=== PATIENT | male | born 1945 | race Asian ===

== ENCOUNTER 2016-12-31 14:24 | Inpatient (IN) | payer MEDICARE, OTHER ==
[~2016-12-31 14:24] MED LIST: SUCCINYLCHOLINE CHLORIDE INJ 200 MG/10 ML VIAL ONE
[2016-12-31] MEDS ORDERED: NORMAL SALINE 1000 ML 1,000 ML IV ONE (14:44)
--- NOTE | 2016-12-31 15:32 | ER Document Report ---
ED Skin Rash/Insect Bite/Abscs - General Chief Complaint: Skin Problem Stated Complaint: POSSIBLE CELLULITIS/RIGHT FLANK Time Seen by Provider: 12/31/16 14:41 Notes: Patient has a red painful swollen area on his right lower thoracic back which started as a small spot yesterday and is gotten much larger and painful to touch. Patient is a resident and [facility], rehabilitating from coronary bypass surgery in October at [facility].. He had an outpatient CBC done yesterday with a white count of 26,000. 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 Patient has a history of a stroke leaving his right side somewhat affected. Hypertension. High cholesterol. Poor vision and glaucoma. Coronary artery disease with a triple bypass surgery in October. Gout. TRAVEL OUTSIDE OF THE [place] IN LAST 30 DAYS: No - Related Data Allergies/Adverse Reactions: amiodarone Allergy (Verified 12/31/16 16:32) meloxicam [From Mobic] Allergy (Verified 12/31/16 16:32) sulindac [From Clinoril] Allergy (Verified 12/31/16 16:32) Past Medical History - Social History Smoking Status: Unknown if Ever Smoked Frequency of alcohol use: None Family History: Reviewed & Not Pertinent - Past Medical History Cardiac Medical History: Reports: Hx Coronary Artery Disease, Hx Heart Attack, Hx Hypercholesterolemia, Hx Hypertension Neurological Medical History: Reports: Hx Cerebrovascular Accident Endocrine Medical History: Denies: Hx Diabetes Mellitus Type 1, Hx Diabetes Mellitus Type 2 Musculoskeltal Medical History: Reports Hx Gout Review of Systems - Review of Systems Notes: REVIEW OF SYSTEMS: CONSTITUTIONAL : Denies fever. EENT: Denies eye, ear, nose or mouth or throat pain or other symptoms. CARDIOVASCULAR: Denies chest pain. RESPIRATORY: Denies cough, chest congestion, or shortness of breath. GASTROINTESTINAL: Denies abdominal pain or nausea, vomiting, or diarrhea. GENITOURINARY: Denies difficulty or painful urinating, urinary frequency, blood in urine. MUSCULOSKELETAL: Denies back or neck pain. Denies joint pain or swelling. SKIN: See HPI. NEUROLOGICAL: Denies LOC or altered mental status. Denies headache. Denies sensory loss or motor deficits. ALL OTHER SYSTEMS REVIEWED AND NEGATIVE. Physical Exam - Vital signs Vitals: Temp Pulse Resp BP Pulse Ox 99.6 F 67 18 102/55 L 97 12/31/16 14:44 12/31/16 14:44 12/31/16 14:44 12/31/16 14:44 12/31/16 14:44 Interpretation: No: Hypotensive, Febrile - Notes Notes: PHYSICAL EXAMINATION: GENERAL: Chronically ill appearing, in no acute distress. Afebrile and normal blood pressure here, although he had blood pressure of 94/47 by EMS. HEAD: Atraumatic, normocephalic. EYES: Pupils equal round and reactive to light, extraocular movements intact. ENT: oropharynx clear without exudates. Somewhat dry mucous membranes. NECK: Normal range of motion, supple. LUNGS: Breath sounds clear and equal bilaterally. HEART: Regular rate and rhythm without murmurs. Scar from recent CABG ABDOMEN: Soft, nontender. No guarding or rebound. BACK: Right lower thoracic back down to the right flank is all swollen and erythematous and very tender to the touch. Size is about 6 inches in diameter. It is quite firm and indurated and I do not feel fluctuance, although I do suspect there is a tense abscess here. Centrally located in this area of erythema are a half a dozen small pustules that are draining and were cultured. No tenderness throughout remainder of entire back. EXTREMITIES: Normal range of motion without pain. NEUROLOGICAL: Normal speech. Seems to answer questions slowly, but appropriately. Unable to assess ambulation.. PSYCH: Normal mood, normal affect. SKIN: Warm, dry, no rashes. Course - Vital Signs Vital signs: Temp Pulse Resp BP Pulse Ox 99.6 F 67 18 102/55 L 97 12/31/16 14:44 12/31/16 14:44 12/31/16 14:44 12/31/16 14:44 12/31/16 14:44 - Laboratory Result Diagrams: 12/31/16 15:52 12/31/16 15:52 Laboratory results interpreted by me: 12/31/16 12/31/16 15:52 15:52 WBC 35.1 H* RBC 3.04 L Hgb 8.8 L Hct 27.4 L RDW 17.7 H Seg Neuts % (Manual) 86 H Lymphocytes % (Manual) 5 L Abs Neuts (Manual) 31.2 H Abs Basophils (Manual) 0.7 H Direct Bilirubin 0.6 H Alkaline Phosphatase 172 H Albumin 2.9 L - EKG Interpretation by Me EKG shows normal: Sinus rhythm Rate: Normal Rhythm: NSR Additional EKG results interpreted by me: 12/31/16 17:01 ST changes in the inferior leads could be suggestive of ST elevation and an inferior infarct, age undetermined. Patient has absolutely no symptoms to suggest an acute cardiac event. Denies any chest pains whatsoever. No back pain except today where his abscess is located. I have added a troponin and CK- MB testing. Patient's abscess is an emergency that needs to be treated with urgent incision and drainage. Discharge - Discharge Clinical Impression: Abscess of back Condition: Fair Disposition: ADMITTED INPATIENT Admitting Provider: Surgicalist Unit Admitted: OR
[2016-12-31 16:20] LABS: HEMATOCRIT 27.4 % (37.9-51.0); HEMOGLOBIN 8.8 g/dL (13.5-17.0); MEAN CORPUSCULAR HGB CONC 32.2 g/dL (32.0-36.0); MEAN CORPUSCULAR VOLUME 90 fl (80-97); RED BLOOD COUNT 3.04 10^6/uL (4.35-5.55); RED CELL DISTRIBUTION WIDTH 17.7 % (11.5-14.0)
[2016-12-31 16:42] LABS: ALANINE AMINOTRANSFERASE 49 U/L (21-72); ALBUMIN 2.9 g/dL (3.5-5.0); ALKALINE PHOSPHATASE 172 U/L (38-126); ANION GAP 10 (5-19); ASPARTATE AMINO TRANSFERASE 47 U/L (17-59); BILIRUBIN,DIRECT 0.6 mg/dL (0.0-0.4); BILIRUBIN,TOTAL 0.8 mg/dL (0.2-1.3); BLOOD UREA NITROGEN 10 mg/dL (7-20); CALCIUM 8.9 mg/dL (8.4-10.2); CARBON DIOXIDE 25 mmol/L (22-30); CHLORIDE 104 mmol/L (98-107); CREATININE RESULT 0.74 mg/dL (0.52-1.25); GLUCOSE 104 mg/dL (75-110); POTASSIUM 3.6 mmol/L (3.6-5.0); TOTAL PROTEIN 6.5 g/dL (6.3-8.2)
[2016-12-31 16:45] LABS: BAND NEUTROPHILS % (MANUAL) 3 % (3-5); BASOPHILS % (MANUAL) 2 % (0-2); EOSINOPHILS % (MANUAL) 1 % (0-6); LYMPHOCYTES % (MANUAL) 5 % (13-45); TOTAL CELLS COUNTED 100
[2016-12-31 16:47] LABS: ANISOCYTOSIS 1+; HYPOCHROMASIA SLIGHT; PLATELET CLUMPS PRESENT
[2016-12-31 16:50] LABS: WHITE BLOOD COUNT 35.1 10^3/uL (4.0-10.5)
[2016-12-31] MEDS ORDERED: BUPIVACAINE HCL 0.5 % INJ/PF 30 ML SDV ONE (17:07)
[2016-12-31] MEDS ORDERED: CLINDAMYCIN 600 MG/D5W RTU 600 MG/50 ML RTUPB IV ONE (17:13)
[2016-12-31] MEDS ORDERED: CLINDAMYCIN 600 MG/D5W RTU 600 MG/50 ML RTUPB IV SCH (17:15)
[2016-12-31] MEDS ORDERED: PROPOFOL INJ 200 MG/20 ML VIAL IV ONE (17:26)
[2016-12-31] MEDS ORDERED: FENTANYL CITRATE INJ/PF 100 MCG/2 ML AMPUL ONE ×2 (17:26→18:20)
[2016-12-31] MEDS ORDERED: MIDAZOLAM 2 MG/2 ML INJ ONE (17:26)
[2016-12-31] MEDS ORDERED: LIDOCAINE 2% INJ-PF (20 MG/ML) 10 ML AMPUL ONE (17:26)
[2016-12-31] MEDS ORDERED: ACETAMINOPHEN 100 ML IV ONE (17:27)
[2016-12-31] MEDS ORDERED: EPHEDRINE SULFATE INJ 50 MG/1 ML AMPULE ONE (17:27)
[2016-12-31 17:41] LABS: CREATINE KINASE MB 0.73 ng/mL (<4.55)
[2016-12-31 17:53] LABS: APPEARANCE,URINE SLIGHTLY-CLOUDY; BILIRUBIN,URINE NEGATIVE (NEGATIVE); GLUCOSE, URINE NEGATIVE (NEGATIVE); KETONES,URINE NEGATIVE (NEGATIVE); LEUKOCYTE ESTERASE,URINE NEGATIVE (NEGATIVE); NITRITE,URINE NEGATIVE (NEGATIVE); PROTEIN,URINE NEGATIVE (NEGATIVE); URINE SPECIFIC GRAVITY 1.012
[2016-12-31 17:56] LABS: TROPONIN I 0.051 ng/mL
[2016-12-31] MEDS ORDERED: ONDANSETRON HCL INJ/PF 4 MG/2 ML SDV IV PRN (18:34)
[2016-12-31] MEDS ORDERED: FENTANYL CITRATE INJ/PF 100 MCG/2 ML AMPUL IV PRN ×3 (18:34)
[2016-12-31] MEDS ORDERED: DIPHENHYDRAMINE HCL 50 MG/ML VIAL IV PRN (18:34)
[2016-12-31] MEDS ORDERED: OXYCODONE-ACETAMINOPHEN 5-325 MG TABLET PO PRN (18:34)
[2016-12-31] MEDS ORDERED: MEPERIDINE HCL/PF INJ 25 MG/1 ML DISP.SYRIN IV PRN (18:34)
[2016-12-31] MEDS ORDERED: PROMETHAZINE HCL INJ 25 MG/1 ML VIAL IV PRN ×2 (18:34)
[2016-12-31 19:21] LABS: HEMATOCRIT 24.3 % (37.9-51.0); HGB HCT DIFFERENCE -0.6; MEAN CORPUSCULAR HEMOGLOBIN 29.1 pg (27.0-33.4); MEAN CORPUSCULAR HGB CONC 32.3 g/dL (32.0-36.0); MEAN CORPUSCULAR VOLUME 90 fl (80-97)
[2016-12-31] MEDS ORDERED: VANCOMYCIN HCL INJ 1000 MG VIAL IV PRN (19:28)
[2016-12-31 19:45] LABS: BAND NEUTROPHILS % (MANUAL) 6 % (3-5); BASOPHILS % (MANUAL) 0 % (0-2); EOSINOPHILS % (MANUAL) 1 % (0-6); LYMPHOCYTES % (MANUAL) 1 % (13-45); TOTAL CELLS COUNTED 100
[2016-12-31 19:46] LABS: TOXIC VACUOLATION PRESENT
[2016-12-31 19:49] LABS: ANISOCYTOSIS SLIGHT; OVALOCYTES SLIGHT; POIKILOCYTOSIS SLIGHT
[2016-12-31 19:50] LABS: PLATELET CLUMPS PRESENT; TARGET CELLS SLIGHT
[2016-12-31 19:51] LABS: BURR CELLS SLIGHT
[2016-12-31 19:52] LABS: HEMOGLOBIN 7.9 g/dL (13.5-17.0)
--- NOTE | 2016-12-31 19:58 | HISTORY AND PHYSICAL E ---
History and Physical NAME: GISSELLE DUFF : 1945 AGE: 71Y ADMITTED: 12/31/2016 ROOM: ED08 CHIEF COMPLAINT: Pains in the right lower back. HISTORY OF PRESENT ILLNESS: This is a 71-year-old male who had a previous coronary artery bypass a month ago and was at the residential recuperating when he complained of pains along the right lower back for the past 3 days. It was noted to be getting bigger and red and painful and so was brought to the emergency room. PAST MEDICAL HISTORY: 1. History of hypertension. 2. 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 The only residual is a little slow in speech and occasionally gets unstable on his feet. SOCIAL HISTORY: Used to smoke until 1979. Drinks wine rarely. Denies recreational drug use. ALLERGIES: None known. FAMILY HISTORY: Mother had diabetes and father had a stroke. A son also has diabetes. REVIEW OF SYSTEMS: A little slow in speech. Denies any chest pain, any shortness of breath. No visual or hearing problems. Denies headaches. No chest pains or shortness of breath. No abdominal pains. No diarrhea. No constipation. Complaining of pains in the right lower back over the past 3 days. Denies any fever or chills. PHYSICAL EXAMINATION: SKIN/MUSCULOSKELETAL: Extremities have some superficial ulcer on the left heel presumed to be due to gouty arthritis. He also has a grade-1 to 2 decubitus ulcer on the sacral area that is apparently healing, accordingly to his . He has a large reddish-discolored very tender lump on the right lower back that is very tender. IMPRESSION: 1. Abscess of the right lower back. 2. Status post coronary artery bypass. PLANS: The patient is for incision and drainage of abscess of the right lower back. Start him on IV antibiotics and start hydrating since he has not eaten since yesterday. DICTATING PHYSICIAN: YOHANNES LENNON M.D. [id number] PHY#: [id number] ID: [id number] JOB#: [id number] ACCT: [id number] cc:NO Tiana MARTE
--- NOTE | 2016-12-31 21:13 | OPERATIVE REPORT E ---
Operative Report NAME: GISSELLE DUFF : 1945 AGE: 71Y DATE OF SURGERY: 12/31/2016 ROOM: 316 PREOPERATIVE DIAGNOSIS: Abscess of the right lower back. POSTOPERATIVE DIAGNOSIS: Abscess of the right lower back with involvement of the fascia down to the posterior muscle. OPERATION: Incision and drainage and debridement of 12 cm x 3 cm deep x 3 cm wide abscess. SURGEON: YOHANNES LENNON M.D. ANESTHESIA: General. INDICATION: This is a 71-year-old male post coronary artery bypass a month ago and has been in the [facility] recovering, when he complained of pains along the right lower back for the past 2-3 days. His white count is elevated at 35,000 and he apparently has a history of leukemoid reaction. Denies any fever but has some chills or feels cold. He has a large erythema along the right lower back that is very tender. DESCRIPTION OF PROCEDURE: After adequate general anesthesia, the patient was placed in the left lateral decubitus position with the right side up. An appropriate timeout was performed. Next, a transverse incision was made across the erythematous area and a lot of pus extruded out. Cultures were obtained. The incision was extended laterally and medially to a distance of 12 cm. There was some tunneling that was broken down with finger dissection, and the fascia was involved, going down to the muscle underneath the fascia. The fascia was partially debrided and the wound was then pulse lavaged with about 6 L of saline. Further debridement of necrotic tissue was done of the subcu of the fascia. It appears that the abscess was going superiorly and inferiorly through the subcutaneous area, since pus would come out just by pressing on the subcu. This was also opened up and debrided. Hemostasis was controlled with cautery. The fascia was debrided up to bleeding area. Hemostasis further controlled with cautery. Next the cavity was then packed with 1/2-inch Iodoform gauze. A sterile 4 x 4 and ABD was then placed over the operative site. Needle, instruments and sponge counts were all correct. Estimated blood loss about 30 mL. The patient was then brought to PACU in guarded condition. DICTATING PHYSICIAN: YOHANNES LENNON M.D. [id number] PHY#: [id number] ID: [id number] JOB#: [id number] ACCT: [id number] cc:YOHANNES LENNON M.D. >
[2016-12-31] MEDS ORDERED: NORMAL SALINE 250 ML IV PRN (21:26)
[2016-12-31] MEDS: NORMAL SALINE 1000 ML 1,000 ML IV PRN (22:04)
[2016-12-31] MEDS ORDERED: VANCOMYCIN HCL INJ 1000 MG VIAL ONE (22:38)
[2016-12-31] MEDS: VANCOMYCIN HCL 1,000 MG in DEXTROSE 5%-WATER 250 ML IV SCH (23:40)
[2017-01-01] MEDS ORDERED: INFLUENZA ADLT QUAD (36MOS+) 2017-18 VAC 0.5 ML SYR IM PRN (02:58)
--- NOTE | 2017-01-01 06:24 | EKG REPORT ---
SEVERITY:- ABNORMAL ECG - SINUS RHYTHM PROBABLE INFERIOR INFARCT, AGE INDETERMINATE LATERAL LEADS ARE ALSO INVOLVED : Confirmed by: Candace Flores MD 01-Jan-2017 06:23:09
[2017-01-01 08:39] LABS: HEMATOCRIT 31.8 % (37.9-51.0); HGB HCT DIFFERENCE 0.3; MEAN CORPUSCULAR HEMOGLOBIN 28.7 pg (27.0-33.4); MEAN CORPUSCULAR HGB CONC 33.5 g/dL (32.0-36.0); RED BLOOD COUNT 3.71 10^6/uL (4.35-5.55); RED CELL DISTRIBUTION WIDTH 19.5 % (11.5-14.0)
--- NOTE | 2017-01-01 09:33 | PDOC PROGRESS REPORT ---
Subjective Progress Note for:: 01/01/17 Subjective:: Patient is very weak, but states he feels better. Physical Exam Vital Signs: Temp Pulse Resp BP Pulse Ox 98.7 F 70 18 133/77 H 99 01/01/17 07:32 01/01/17 07:32 01/01/17 07:32 01/01/17 07:32 01/01/17 07:32 Intake & Output 12/31/16 01/01/17 01/02/17 06:59 06:59 06:59 Intake Total 89589 Output Total 6260 Balance 3994 Weight 68.5 kg General appearance: PRESENT: no acute distress GI/Abdominal exam: PRESENT: other - Patient rolled in the left lateral position. External dressing removed; surrounding operative wound erythema settling down. Strip packing left in position. Results Laboratory Results: 01/01/17 08:10 12/31/16 12/31/16 12/31/16 17:15 17:22 19:10 WBC 30.0 H* RBC 2.70 L Hgb 7.9 L Hct 24.3 L MCV 90 MCH 29.1 MCHC 32.3 RDW 18.0 H Plt Count 276 Seg Neutrophils % Not Reportable Lymphocytes % Not Reportable Monocytes % Not Reportable Eosinophils % Not Reportable Basophils % Not Reportable Absolute Neutrophils Not Reportable Absolute Lymphocytes Not Reportable Absolute Monocytes Not Reportable Absolute Eosinophils Not Reportable Absolute Basophils Not Reportable Sodium Potassium Chloride Carbon Dioxide Anion Gap BUN Creatinine Est GFR ( Amer) Est GFR (Non-Af Amer) Glucose Lactic Acid Calcium Total Bilirubin AST ALT Alkaline Phosphatase Total Protein Albumin Urine Color YELLOW Urine Appearance SLIGHTLY-CLOUDY Urine pH 5.0 Ur Specific [place] 1.012 Urine Protein NEGATIVE Urine Glucose (UA) NEGATIVE Urine Ketones NEGATIVE Urine Blood NEGATIVE Urine Nitrite NEGATIVE Ur Leukocyte Esterase NEGATIVE Urine WBC (Auto) 2 Urine RBC (Auto) 0 Blood Type A POSITIVE Antibody Screen NEGATIVE 12/31/16 01/01/17 20:25 08:10 WBC RBC Hgb Hct MCV MCH MCHC RDW Plt Count Seg Neutrophils % Lymphocytes % Monocytes % Eosinophils % Basophils % Absolute Neutrophils Absolute Lymphocytes Absolute Monocytes Absolute Eosinophils Absolute Basophils Sodium Cancelled Potassium Cancelled Chloride Cancelled Carbon Dioxide Cancelled Anion Gap Cancelled BUN Cancelled Creatinine Cancelled Est GFR ( Amer) Cancelled Est GFR (Non-Af Amer) Cancelled Glucose Cancelled Lactic Acid 1.5 Calcium Cancelled Total Bilirubin Cancelled AST Cancelled ALT Cancelled Alkaline Phosphatase Cancelled Total Protein Cancelled Albumin Cancelled Urine Color Urine Appearance Urine pH Ur Specific [place] Urine Protein Urine Glucose (UA) Urine Ketones Urine Blood Urine Nitrite Ur Leukocyte Esterase Urine WBC (Auto) Urine RBC (Auto) Blood Type Antibody Screen Assessment & Plan - Diagnosis (1) Abscess of back Is this a current diagnosis for this admission?: Yes Plan: Deep, extensive, neglected, now status post operative debridement by Dr. Pollock , postoperative day 1. Plan: 1. We will get patient up with physical therapy. He is very deconditioned. He will likely require transfer to longterm facility 2. Check cultures; continue IV vancomycin 3. We will remove packing and start patient either on dressing changes or wound VAC therapy tomorrow. 4. Start Colace
[2017-01-01 09:35] LABS: BAND NEUTROPHILS % (MANUAL) 2 % (3-5); BASOPHILS % (MANUAL) 0 % (0-2); EOSINOPHILS % (MANUAL) 2 % (0-6); LYMPHOCYTES % (MANUAL) 4 % (13-45); TOTAL CELLS COUNTED 100
[2017-01-01 09:39] LABS: POLYCHROMASIA SLIGHT; TOXIC GRANULATION 2+; TOXIC VACUOLATION PRESENT
[2017-01-01 09:40] LABS: ANISOCYTOSIS 2+; OVALOCYTES 1+; POIKILOCYTOSIS 1+
[2017-01-01 09:41] LABS: HEMOGLOBIN 10.7 g/dL (13.5-17.0); MEAN CORPUSCULAR VOLUME 86 fl (80-97)
[2017-01-01 09:45] LABS: WHITE BLOOD COUNT 32.7 10^3/uL (4.0-10.5)
[2017-01-01] MEDS: ENOXAPARIN SODIUM INJ 40 MG/0.4 ML DISP.SYRIN SUBCUT SCH (10:39)
[2017-01-01] MEDS: VANCOMYCIN HCL 1,000 MG in DEXTROSE 5%-WATER 250 ML IV SCH ×2 (10:39→22:31)
[2017-01-01] MEDS: NORMAL SALINE 1000 ML 1,000 ML IV PRN ×2 (10:40→22:30)
[2017-01-01] MEDS: DOCUSATE SODIUM 100 MG CAPSULE PO SCH ×2 (10:40→18:51)
[2017-01-01] MEDS ORDERED: ERTAPENEM SODIUM INJ 1 GM VIAL IV SCH (10:45)
--- NOTE | 2017-01-01 10:45 | PDOC CONSULTATION ---
Consultation Consult Date: 01/01/17 Attending physician:: YOHANNES LENNON Consult reason:: Medical management History of Present Illness Admission Date/PCP: 12/31/16 17:08 Patient complains of: back pain. History of Present Illness: GISSELLE DUFF is a 71 year old male, w/ CAD s/p recent coronary artery bypass grafting on rehabilitation started to develop induration and pain on the back. Patient has a red painful swollen area on his right lower thoracic back which started as a small spot yesterday and is gotten much larger and painful to touch. Patient is a resident and [facility], rehabilitating from coronary bypass surgery in October at [facility].. He had an outpatient CBC done yesterday with a white count of 26,000. On evaluation in the emergency room patient was found to have an abscess and therefore surgery was consulted and an incision and drainage was done. Patient was admitted and referred to the hospitalist service for medical management. Past Medical History Cardiac Medical History: Reports: Coronary Artery Disease, Myocardial Infarction , Hyperlipidema, Hypertension Neurological Medical History: Reports: Other - Cerebral aneurysm and stroke Endocrine Medical History: Denies: Diabetes Mellitus Type 1, Diabetes Mellitus Type 2 Musculoskeltal Medical History: Reports: Gout Past Surgical History Past Surgical History: Reports: Coronary Artery Bypass Graft Social History Information Source: Patient Smoking Status: Former Smoker Frequency of Alcohol Use: Rare Hx Recreational Drug Use: No Drugs: None - Advance Directive Resuscitation Status: Full Code Family History Family History: CVA, DM Parental Family History Reviewed: Yes Children Family History Reviewed: Yes Sibling(s) Family History Reviewed.: Yes Medication/Allergy Home Medications: Allopurinol [Zyloprim 300 mg Tablet] 300 mg PO DAILY 01/01/17 Aspirin [Aspirin EC] 81 mg PO DAILY 01/01/17 Atorvastatin Calcium [Lipitor 80 mg Tablet] 80 mg PO QHS 01/01/17 Brimonidine Tartrate [Alphagan P] 1 drop OU Q8 01/01/17 Felodipine [Plendil] 5 mg PO DAILY 01/01/17 Finasteride [Proscar 5 mg Tablet] 5 mg PO DAILY 01/01/17 Lisinopril [Prinivil 40 mg Tablet] 40 mg PO DAILY 01/01/17 Metoprolol Succinate [Toprol XL 100 mg Tablet] 100 mg PO DAILY 01/01/17 Multivit,Calc,Mins/Iron/Folic [Thera M Plus Tablet] 1 each PO DAILY 01/01/17 Tamsulosin HCl [Flomax 0.4 mg Cap.sr] 0.4 mg PO QHS 01/01/17 Allergies/Adverse Reactions: amiodarone Allergy (Verified 12/31/16 16:32) meloxicam [From Mobic] Allergy (Verified 12/31/16 16:32) sulindac [From Clinoril] Allergy (Verified 12/31/16 16:32) Review of Systems Constitutional: PRESENT: fatigue, fever(s), weakness - Generalized. ABSENT: chills, headache(s), weight gain, weight loss Eyes: PRESENT: visual disturbances - Wears corrective lenses Ears: ABSENT: hearing changes Nose, Mouth, and Throat: ABSENT: mouth pain, sore throat Cardiovascular: PRESENT: chest pain - Occasionally from the wound, dyspnea on exertion - Occasionally. ABSENT: edema, orthropnea, palpitations Respiratory: ABSENT: cough, dyspnea - At rest, hemoptysis, sputum Gastrointestinal: PRESENT: constipation - Occasional. ABSENT: abdominal pain, diarrhea, hematemesis, hematochezia, melena, nausea, vomiting Genitourinary: ABSENT: dysuria, hematuria Musculoskeletal: ABSENT: joint swelling Integumentary: ABSENT: pruritus, rash, wounds Neurological: ABSENT: abnormal gait, abnormal speech, confusion, dizziness, focal weakness, syncope Psychiatric: ABSENT: anxiety, depression, homidical ideation, suicidal ideation Endocrine: ABSENT: cold intolerance, heat intolerance, polydipsia, polyuria Hematologic/Lymphatic: ABSENT: easy bleeding, easy bruising Physical Exam Vital Signs: Temp Pulse Resp BP Pulse Ox 98.7 F 70 18 133/77 H 96 01/01/17 07:32 01/01/17 07:32 01/01/17 07:32 01/01/17 07:32 01/01/17 10:11 Intake & Output 12/31/16 01/01/17 01/02/17 06:59 06:59 06:59 Intake Total 14177 Output Total 6260 Balance 3994 Weight 68.5 kg General appearance: PRESENT: no acute distress, cooperative Head exam: PRESENT: atraumatic, normocephalic Eye exam: PRESENT: conjunctiva pale, EOMI, PERRLA. ABSENT: scleral icterus Ear exam: PRESENT: normal external ear exam. ABSENT: drainage Mouth exam: PRESENT: moist, neck supple, tongue midline Neck exam: ABSENT: carotid bruit, JVD, lymphadenopathy, thyromegaly Respiratory exam: PRESENT: clear to auscultation cuate, unlabored. ABSENT: rales , rhonchi, wheezes Cardiovascular exam: PRESENT: RRR, systolic murmur - Soft murmur on the left sternal border 2/6. ABSENT: diastolic murmur, rubs Pulses: PRESENT: normal dorsalis pedis pul Vascular exam: PRESENT: normal capillary refill GI/Abdominal exam: PRESENT: normal bowel sounds, soft. ABSENT: distended, guarding, mass, organolmegaly, rebound, tenderness Rectal exam: PRESENT: deferred Extremities exam: PRESENT: full ROM, other - Trace pretibial edema. ABSENT: calf tenderness, clubbing, pedal edema Neurological exam: PRESENT: alert, awake, oriented to person, oriented to place , oriented to time, oriented to situation Psychiatric exam: PRESENT: appropriate affect, normal mood. ABSENT: homicidal ideation, suicidal ideation Skin exam: PRESENT: dry, intact, warm, other - Wound right flank area clean without any foul-smelling drainage with surrounding cellulitis.. ABSENT: cyanosis Results Laboratory Results: 01/01/17 08:10 01/01/17 08:10 12/31/16 12/31/16 12/31/16 17:15 17:22 19:10 WBC 30.0 H* RBC 2.70 L Hgb 7.9 L Hct 24.3 L MCV 90 MCH 29.1 MCHC 32.3 RDW 18.0 H Plt Count 276 Seg Neutrophils % Not Reportable Lymphocytes % Not Reportable Monocytes % Not Reportable Eosinophils % Not Reportable Basophils % Not Reportable Absolute Neutrophils Not Reportable Absolute Lymphocytes Not Reportable Absolute Monocytes Not Reportable Absolute Eosinophils Not Reportable Absolute Basophils Not Reportable Sodium Potassium Chloride Carbon Dioxide Anion Gap BUN Creatinine Est GFR ( Amer) Est GFR (Non-Af Amer) Glucose Lactic Acid Calcium Total Bilirubin AST ALT Alkaline Phosphatase Total Protein Albumin Urine Color YELLOW Urine Appearance SLIGHTLY-CLOUDY Urine pH 5.0 Ur Specific [place] 1.012 Urine Protein NEGATIVE Urine Glucose (UA) NEGATIVE Urine Ketones NEGATIVE Urine Blood NEGATIVE Urine Nitrite NEGATIVE Ur Leukocyte Esterase NEGATIVE Urine WBC (Auto) 2 Urine RBC (Auto) 0 Blood Type A POSITIVE Antibody Screen NEGATIVE 12/31/16 01/01/17 01/01/17 20:25 08:10 08:10 WBC 32.7 H* RBC 3.71 L Hgb 10.7 L D Hct 31.8 L MCV 86 D MCH 28.7 MCHC 33.5 RDW 19.5 H Plt Count 305 Seg Neutrophils % Not Reportable Lymphocytes % Not Reportable Monocytes % Not Reportable Eosinophils % Not Reportable Basophils % Not Reportable Absolute Neutrophils Not Reportable Absolute Lymphocytes Not Reportable Absolute Monocytes Not Reportable Absolute Eosinophils Not Reportable Absolute Basophils Not Reportable Sodium Cancelled Potassium Cancelled Chloride Cancelled Carbon Dioxide Cancelled Anion Gap Cancelled BUN Cancelled Creatinine Cancelled Est GFR ( Amer) Cancelled Est GFR (Non-Af Amer) Cancelled Glucose Cancelled Lactic Acid 1.5 Calcium Cancelled Total Bilirubin Cancelled AST Cancelled ALT Cancelled Alkaline Phosphatase Cancelled Total Protein Cancelled Albumin Cancelled Urine Color Urine Appearance Urine pH Ur Specific [place] Urine Protein Urine Glucose (UA) Urine Ketones Urine Blood Urine Nitrite Ur Leukocyte Esterase Urine WBC (Auto) Urine RBC (Auto) Blood Type Antibody Screen Assessment & Plan - Diagnosis (1) Sepsis Qualifiers: Sepsis type: sepsis due to unspecified organism Qualified Code(s): A41.9 - Sepsis, unspecified organism Is this a current diagnosis for this admission?: Yes (2) Abscess of back Is this a current diagnosis for this admission?: Yes (3) Anemia of chronic disease Is this a current diagnosis for this admission?: Yes (4) Essential hypertension Is this a current diagnosis for this admission?: Yes (5) Coronary artery disease Qualifiers: Coronary Disease-Associated Artery/Lesion type: [place] artery [place] vs. transplanted heart: [place] heart Associated angina: without angina Qualified Code(s): I25.10 - Atherosclerotic heart disease of [place] coronary artery without angina pectoris Is this a current diagnosis for this admission?: Yes (6) History of stroke Is this a current diagnosis for this admission?: Yes - Time Time Spent: 50 to 70 Minutes - Plan Summary Plan Summary: Agree with intravenous vancomycin. Add intravenous Invanz. Monitor WBC. Resume home medications. Thank you so much for this consultation we will follow the patient with you.
[2017-01-01] MEDS ORDERED: METOPROLOL SUCCINATE 50 MG TAB.SR.24H PO ONE (12:00)
[2017-01-01] MEDS ORDERED: ASPIRIN 81 MG TABLET, ENT COATED PO ONE (12:00)
[2017-01-01] MEDS ORDERED: ALLOPURINOL 300 MG TABLET PO ONE (12:00)
[2017-01-01] MEDS ORDERED: FINASTERIDE 5 MG TABLET PO ONE (12:00)
[2017-01-01] MEDS ORDERED: ERTAPENEM SODIUM 1 GM in NORMAL SALINE 50 ML IV SCH (12:00)
[2017-01-01] MEDS: OXYCODONE-ACETAMINOPHEN 5-325 MG TABLET PO PRN ×3 (12:36→23:46)
[2017-01-01] MEDS ORDERED: (PENDING PHARMACY ID) (Brimonidine Tartrate [Alphagan P] 1 DROP) OU SCH (14:00)
[2017-01-01 14:13] LABS: PATH REVIEW PATHOLOGIST REVIEWED
[2017-01-01] MEDS: ERTAPENEM SODIUM 1 GM in NORMAL SALINE 50 ML IV SCH (14:31)
[2017-01-01 14:47] LABS: ALANINE AMINOTRANSFERASE 44 U/L (21-72); ALBUMIN 2.3 g/dL (3.5-5.0); ALKALINE PHOSPHATASE 142 U/L (38-126); ANION GAP 13 (5-19); ASPARTATE AMINO TRANSFERASE 34 U/L (17-59); BILIRUBIN,DIRECT 0.5 mg/dL (0.0-0.4); BILIRUBIN,TOTAL 0.8 mg/dL (0.2-1.3); BLOOD UREA NITROGEN 10 mg/dL (7-20); CALCIUM 8.1 mg/dL (8.4-10.2); CARBON DIOXIDE 21 mmol/L (22-30); CHLORIDE 105 mmol/L (98-107); CREATININE RESULT 0.68 mg/dL (0.52-1.25); GLUCOSE 119 mg/dL (75-110); POTASSIUM 3.3 mmol/L (3.6-5.0); SODIUM 139.4 mmol/L (137-145); TOTAL PROTEIN 5.5 g/dL (6.3-8.2)
[2017-01-01] MEDS: TAMSULOSIN HCL 0.4 MG CAP.SR.24H PO SCH (18:51)
[2017-01-01] MEDS: ATORVASTATIN CALCIUM 80 MG TABLET PO SCH (22:30)
[2017-01-02] MEDS: MORPHINE SULFATE 10 MG/ML INJ IV PRN (02:25)
[2017-01-02] MEDS: OXYCODONE-ACETAMINOPHEN 5-325 MG TABLET PO PRN ×3 (04:58→20:24)
[2017-01-02 05:07] LABS: HEMATOCRIT 32.5 % (37.9-51.0); HEMOGLOBIN 10.8 g/dL (13.5-17.0); HGB HCT DIFFERENCE -0.1; MEAN CORPUSCULAR HEMOGLOBIN 28.4 pg (27.0-33.4); MEAN CORPUSCULAR HGB CONC 33.2 g/dL (32.0-36.0); MEAN CORPUSCULAR VOLUME 85 fl (80-97); RED CELL DISTRIBUTION WIDTH 20.2 % (11.5-14.0); WHITE BLOOD COUNT 24.3 10^3/uL (4.0-10.5)
[2017-01-02 05:22] LABS: ANION GAP 10 (5-19); BLOOD UREA NITROGEN 9 mg/dL (7-20); CALCIUM 8.4 mg/dL (8.4-10.2); CARBON DIOXIDE 22 mmol/L (22-30); CHLORIDE 107 mmol/L (98-107); CREATININE RESULT 0.71 mg/dL (0.52-1.25); GLUCOSE 106 mg/dL (75-110); POTASSIUM 3.6 mmol/L (3.6-5.0); SODIUM 139.1 mmol/L (137-145)
[2017-01-02] MEDS: ENOXAPARIN SODIUM INJ 40 MG/0.4 ML DISP.SYRIN SUBCUT SCH (09:33)
[2017-01-02] MEDS: ALLOPURINOL 300 MG TABLET PO SCH (09:34)
[2017-01-02] MEDS: FINASTERIDE 5 MG TABLET PO SCH (09:35)
[2017-01-02] MEDS: DOCUSATE SODIUM 100 MG CAPSULE PO SCH ×2 (09:35→18:49)
[2017-01-02] MEDS: METOPROLOL SUCCINATE 50 MG TAB.SR.24H PO SCH (09:35)
[2017-01-02] MEDS: VANCOMYCIN HCL 1,000 MG in DEXTROSE 5%-WATER 250 ML IV SCH ×2 (09:52→22:58)
[2017-01-02] MEDS: ASPIRIN 81 MG TABLET, ENT COATED PO SCH (09:54)
[2017-01-02] MEDS ORDERED: HYDRALAZINE HCL INJ/PF 20 MG/1 ML SDV IV PRN (13:48)
--- NOTE | 2017-01-02 13:53 | PDOC PROGRESS REPORT ---
Physical Exam Vital Signs: Temp Pulse Resp BP Pulse Ox 100.1 F 88 20 174/112 H 94 01/02/17 12:11 01/02/17 12:11 01/02/17 12:11 01/02/17 12:11 01/02/17 12:11 Intake & Output 01/01/17 01/02/17 01/03/17 06:59 06:59 06:59 Intake Total 10661 3599 Output Total 6260 425 Balance 3994 3174 Weight 68.5 kg Results Laboratory Results: 01/02/17 04:47 01/02/17 04:47 01/01/17 01/02/17 01/02/17 14:05 04:47 04:47 WBC 24.3 H RBC 3.80 L Hgb 10.8 L Hct 32.5 L MCV 85 MCH 28.4 MCHC 33.2 RDW 20.2 H Plt Count 308 Sodium 139.4 139.1 Potassium 3.3 L 3.6 Chloride 105 107 Carbon Dioxide 21 L 22 Anion Gap 13 10 BUN 10 9 Creatinine 0.68 0.71 Est GFR ( Amer) > 60 > 60 Est GFR (Non-Af Amer) > 60 > 60 Glucose 119 H 106 Calcium 8.1 L 8.4 Total Bilirubin 0.8 AST 34 ALT 44 Alkaline Phosphatase 142 H Total Protein 5.5 L Albumin 2.3 L Assessment & Plan - Diagnosis (1) Sepsis Qualifiers: Sepsis type: sepsis due to unspecified organism Qualified Code(s): A41.9 - Sepsis, unspecified organism Is this a current diagnosis for this admission?: Yes Plan: Secondary to an abscess on his back. (2) Abscess of back Is this a current diagnosis for this admission?: Yes Plan: Currently on vancomycin and ertapenem. (3) Anemia of chronic disease Is this a current diagnosis for this admission?: Yes (4) Coronary artery disease Qualifiers: Coronary Disease-Associated Artery/Lesion type: [place] artery [place] vs. transplanted heart: [place] heart Associated angina: without angina Qualified Code(s): I25.10 - Atherosclerotic heart disease of [place] coronary artery without angina pectoris Is this a current diagnosis for this admission?: Yes Plan: Denies any chest pain. (5) Essential hypertension Is this a current diagnosis for this admission?: Yes Plan: Patient's blood pressure has been elevated. He normally takes Plendil but we do not have that on formulary will give Norvasc instead. Also will give as needed hydralazine. (6) History of stroke Is this a current diagnosis for this admission?: Yes - Time Time Spent with patient: 25-34 minutes - Inpatient Certification Medical Necessity: Need for IV Antibiotics
[2017-01-02] MEDS: ERTAPENEM SODIUM 1 GM in NORMAL SALINE 50 ML IV SCH (14:18)
[2017-01-02] MEDS ORDERED: AMLODIPINE BESYLATE 5 MG TABLET PO ONE (14:45)
[2017-01-02] MEDS ORDERED: LIDOCAINE 0.5% INJ-PF (5 MG/ML) 50 ML SDV ONE (15:34)
[2017-01-02] MEDS ORDERED: ONDANSETRON HCL INJ/PF 4 MG/2 ML SDV ONE (15:36)
[2017-01-02] MEDS ORDERED: FENTANYL CITRATE INJ/PF 100 MCG/2 ML AMPUL ONE (15:36)
[2017-01-02] MEDS ORDERED: MIDAZOLAM 2 MG/2 ML INJ ONE (15:36)
[2017-01-02] MEDS ORDERED: PROPOFOL INJ 200 MG/20 ML VIAL IV ONE (15:37)
[2017-01-02] MEDS ORDERED: MORPHINE SULFATE 10 MG/ML INJ IV PRN (16:43)
[2017-01-02] MEDS ORDERED: PROMETHAZINE HCL INJ 25 MG/1 ML VIAL IV PRN (16:43)
[2017-01-02] MEDS ORDERED: MEPERIDINE HCL/PF INJ 25 MG/1 ML DISP.SYRIN IV PRN (16:43)
[2017-01-02] MEDS ORDERED: DIPHENHYDRAMINE HCL 50 MG/ML VIAL IV PRN (16:43)
[2017-01-02] MEDS ORDERED: FENTANYL CITRATE INJ/PF 100 MCG/2 ML AMPUL IV PRN ×3 (16:43)
--- NOTE | 2017-01-02 18:13 | OPERATIVE REPORT E ---
Operative Report NAME: GISSELLE DUFF : 1945 AGE: 71Y DATE OF SURGERY: 01/02/2017 ROOM: 316 PREOPERATIVE DIAGNOSIS: PERSISTENT ABSCESS OF THE RIGHT LOWER BACK. POSTOPERATIVE DIAGNOSIS: PERSISTENT ABSCESS OF THE RIGHT LOWER BACK WITH INVOLVEMENT OF THE FASCIA. OPERATION: Debridement of persistent abscess including the fascia. SURGEON: YOHANNES LENNON M.D. ANESTHESIA: Local MAC INDICATIONS: This is a 71-year-old male with abscess of right lower back that was drained two days ago. Today he had a fever and inspection of the wound showed still a persistent abscess formation and therefore patient taken to the OR for further debridement. PROCEDURE: The patient was given IV sedation and then placed in a left lateral decubitus position. The right lower back abscess site was then prepped and draped in the usual sterile fashion. Local anesthesia then infiltrated along the edges of the wound and the edges appeared to be partially devascularized and this was then excised sharply. About 8 mm of the skin edge at the mid part of the abscess site was excised from both sides. Next, there was some purulent material and chronic tissue noted on the anterior aspect of the wound involving the fascia. Local anesthesia then infiltrated further down into the fascia and the fascia sharply dissected and divided. Hemostasis obtained with cautery. The area was then pulse lavaged with 2 liters of saline. The incision also was extended laterally because of tunneling underneath and the local anesthesia infiltrated. The wound was extended about 3 cm further laterally. Next, hemostasis obtained with cautery. Following this, further irrigation with just saline with bulb syringe was done and adequate hemostasis noted. Next, the wound was then packed with a bottle of 1/2-inch and a bottle of 1/4-inch tied together. Sterile dressings placed over the operative site. Needle, instrument, and sponge count were all correct. Estimated blood loss was about 20 mL. Patient was then brought to the PACU in satisfactory condition. DICTATING PHYSICIAN: YOHANNES LENNON M.D. [id number] PHY#: [id number] ID: [id number] JOB#: [id number] ACCT: [id number] cc:YOHANNES LENNON M.D. > [facility]ITALJair
[2017-01-02] MEDS: TAMSULOSIN HCL 0.4 MG CAP.SR.24H PO SCH (18:49)
[2017-01-02] MEDS: NORMAL SALINE 1000 ML 1,000 ML IV PRN (20:23)
[2017-01-02] MEDS: ATORVASTATIN CALCIUM 80 MG TABLET PO SCH (22:59)
[2017-01-03] MEDS: OXYCODONE-ACETAMINOPHEN 5-325 MG TABLET PO PRN ×2 (00:24→04:10)
[2017-01-03 05:08] LABS: HEMATOCRIT 31.3 % (37.9-51.0); HEMOGLOBIN 10.5 g/dL (13.5-17.0); HGB HCT DIFFERENCE 0.2; MEAN CORPUSCULAR HEMOGLOBIN 28.6 pg (27.0-33.4); MEAN CORPUSCULAR HGB CONC 33.4 g/dL (32.0-36.0); MEAN CORPUSCULAR VOLUME 86 fl (80-97); RED BLOOD COUNT 3.66 10^6/uL (4.35-5.55); RED CELL DISTRIBUTION WIDTH 18.9 % (11.5-14.0); WHITE BLOOD COUNT 21.6 10^3/uL (4.0-10.5)
[2017-01-03 05:24] LABS: ANION GAP 10 (5-19); BLOOD UREA NITROGEN 11 mg/dL (7-20); CALCIUM 8.2 mg/dL (8.4-10.2); CARBON DIOXIDE 20 mmol/L (22-30); CHLORIDE 107 mmol/L (98-107); CREATININE RESULT 0.72 mg/dL (0.52-1.25); GLUCOSE 97 mg/dL (75-110); POTASSIUM 3.5 mmol/L (3.6-5.0); SODIUM 137.4 mmol/L (137-145)
[2017-01-03 05:35] LABS: BASOPHILS % (MANUAL) 0 % (0-2); EOSINOPHILS % (MANUAL) 0 % (0-6); LYMPHOCYTES % (MANUAL) 4 % (13-45); TOTAL CELLS COUNTED 100
[2017-01-03 05:36] LABS: ANISOCYTOSIS 2+; BURR CELLS SLIGHT; OVALOCYTES SLIGHT; POIKILOCYTOSIS SLIGHT; POLYCHROMASIA SLIGHT; SCHISTOCYTES SLIGHT; TOXIC GRANULATION SLIGHT; TOXIC VACUOLATION PRESENT
[2017-01-03] MEDS: ALLOPURINOL 300 MG TABLET PO SCH (09:35)
[2017-01-03] MEDS: ENOXAPARIN SODIUM INJ 40 MG/0.4 ML DISP.SYRIN SUBCUT SCH (09:35)
[2017-01-03] MEDS: METOPROLOL SUCCINATE 50 MG TAB.SR.24H PO SCH (09:36)
[2017-01-03] MEDS: FINASTERIDE 5 MG TABLET PO SCH (09:36)
[2017-01-03] MEDS: DOCUSATE SODIUM 100 MG CAPSULE PO SCH ×2 (09:36→18:35)
[2017-01-03] MEDS: VANCOMYCIN HCL 1,000 MG in DEXTROSE 5%-WATER 250 ML IV SCH (09:36)
[2017-01-03] MEDS: ASPIRIN 81 MG TABLET, ENT COATED PO SCH (09:39)
--- NOTE | 2017-01-03 10:43 | PDOC PROGRESS REPORT ---
Subjective Progress Note for:: 01/03/17 Subjective:: He reports his back pain is much less than yesterday. Physical Exam Vital Signs: Temp Pulse Resp BP Pulse Ox 98.6 F 71 18 129/73 H 97 01/03/17 08:09 01/03/17 08:09 01/03/17 08:09 01/03/17 08:09 01/03/17 08:09 Intake & Output 01/02/17 01/03/17 01/04/17 06:59 06:59 06:59 Intake Total 3599 6423 Output Total 425 3175 Balance 3174 3248 Weight 72.2 kg General appearance: PRESENT: no acute distress Eye exam: PRESENT: conjunctiva pink. ABSENT: scleral icterus Ear exam: PRESENT: normal external ear exam Mouth exam: PRESENT: moist, tongue midline Neck exam: ABSENT: JVD Respiratory exam: PRESENT: clear to auscultation cuate. ABSENT: rales, rhonchi, wheezes Cardiovascular exam: PRESENT: RRR. ABSENT: diastolic murmur, rubs, systolic murmur GI/Abdominal exam: PRESENT: normal bowel sounds, soft. ABSENT: distended, guarding, mass, organolmegaly, rebound, tenderness Extremities exam: ABSENT: calf tenderness, clubbing, pedal edema Neurological exam: PRESENT: alert, awake, oriented to person, oriented to place , oriented to time, oriented to situation, CN II-XII grossly intact. ABSENT: motor sensory deficit Psychiatric exam: PRESENT: appropriate affect Skin exam: PRESENT: other - Dressing in place on the lower back. Results Laboratory Results: 01/03/17 04:39 01/03/17 04:39 01/03/17 01/03/17 04:39 04:39 WBC 21.6 H RBC 3.66 L Hgb 10.5 L Hct 31.3 L MCV 86 MCH 28.6 MCHC 33.4 RDW 18.9 H Plt Count 298 Seg Neutrophils % Not Reportable Lymphocytes % Not Reportable Monocytes % Not Reportable Eosinophils % Not Reportable Basophils % Not Reportable Absolute Neutrophils Not Reportable Absolute Lymphocytes Not Reportable Absolute Monocytes Not Reportable Absolute Eosinophils Not Reportable Absolute Basophils Not Reportable Sodium 137.4 Potassium 3.5 L Chloride 107 Carbon Dioxide 20 L Anion Gap 10 BUN 11 Creatinine 0.72 Est GFR ( Amer) > 60 Est GFR (Non-Af Amer) > 60 Glucose 97 Calcium 8.2 L Assessment & Plan - Diagnosis (1) Sepsis Qualifiers: Sepsis type: sepsis due to unspecified organism Qualified Code(s): A41.9 - Sepsis, unspecified organism Is this a current diagnosis for this admission?: Yes Plan: Secondary to an abscess on his back. (2) Abscess of back Is this a current diagnosis for this admission?: Yes Plan: Currently on vancomycin and ertapenem. The patient is growing staph aureus from cultures. He could be switched to a penicillin based antibiotic. Will discuss antibiotic selection with surgery. (3) Anemia of chronic disease Is this a current diagnosis for this admission?: Yes (4) Coronary artery disease Qualifiers: Coronary Disease-Associated Artery/Lesion type: [place] artery [place] vs. transplanted heart: [place] heart Associated angina: without angina Qualified Code(s): I25.10 - Atherosclerotic heart disease of [place] coronary artery without angina pectoris Is this a current diagnosis for this admission?: Yes Plan: Denies any chest pain. (5) Essential hypertension Is this a current diagnosis for this admission?: Yes Plan: Patient's blood pressure has been elevated. He normally takes Plendil but we do not have that on formulary will give Norvasc instead. Also will give as needed hydralazine. (6) History of stroke Is this a current diagnosis for this admission?: Yes - Time Time Spent with patient: 25-34 minutes - Inpatient Certification Medical Necessity: Need for IV Antibiotics
[2017-01-03] MEDS: AMLODIPINE BESYLATE 5 MG TABLET PO SCH (10:57)
[2017-01-03 11:15] LABS: CREATININE RESULT 0.73 mg/dL (0.52-1.25)
--- NOTE | 2017-01-03 11:44 | PDOC PROGRESS REPORT ---
Subjective Progress Note for:: 01/03/17 Subjective:: Generalized weakness. Back feels better Physical Exam Vital Signs: Temp Pulse Resp BP Pulse Ox 98.6 F 71 18 129/73 H 97 01/03/17 08:09 01/03/17 08:09 01/03/17 08:09 01/03/17 08:09 01/03/17 08:09 Intake & Output 01/02/17 01/03/17 01/04/17 06:59 06:59 06:59 Intake Total 3599 6423 Output Total 425 3175 Balance 3174 3248 Weight 72.2 kg General appearance: PRESENT: no acute distress, cooperative, disheveled Respiratory exam: PRESENT: clear to auscultation cuate Cardiovascular exam: PRESENT: RRR Skin exam: PRESENT: other - Lower back wound with dressings intact no surrounding erythema. Results Laboratory Results: 01/03/17 04:39 01/03/17 10:05 01/03/17 01/03/17 01/03/17 04:39 04:39 10:05 WBC 21.6 H RBC 3.66 L Hgb 10.5 L Hct 31.3 L MCV 86 MCH 28.6 MCHC 33.4 RDW 18.9 H Plt Count 298 Seg Neutrophils % Not Reportable Lymphocytes % Not Reportable Monocytes % Not Reportable Eosinophils % Not Reportable Basophils % Not Reportable Absolute Neutrophils Not Reportable Absolute Lymphocytes Not Reportable Absolute Monocytes Not Reportable Absolute Eosinophils Not Reportable Absolute Basophils Not Reportable Sodium 137.4 Potassium 3.5 L Chloride 107 Carbon Dioxide 20 L Anion Gap 10 BUN 11 Creatinine 0.72 0.73 Est GFR ( Amer) > 60 > 60 Est GFR (Non-Af Amer) > 60 > 60 Glucose 97 Calcium 8.2 L Assessment & Plan - Diagnosis (1) Abscess of back Is this a current diagnosis for this admission?: Yes Plan: Status post debridement. Will streamline antibiotics based on culture results. We will plan to remove the packing tomorrow and start a wound VAC tomorrow.
[2017-01-03] MEDS: CEFAZOLIN 2 GM/D5W RTU 2 GM/50 ML RTUPB IV SCH ×2 (14:21→22:03)
[2017-01-03] MEDS: TAMSULOSIN HCL 0.4 MG CAP.SR.24H PO SCH (18:35)
[2017-01-03] MEDS: ATORVASTATIN CALCIUM 80 MG TABLET PO SCH (22:03)
[2017-01-04] MEDS: NORMAL SALINE 1000 ML 1,000 ML IV PRN ×2 (04:51→23:46)
[2017-01-04] MEDS: CEFAZOLIN 2 GM/D5W RTU 2 GM/50 ML RTUPB IV SCH ×3 (05:26→21:02)
[2017-01-04 06:13] LABS: HEMATOCRIT 30.9 % (37.9-51.0); HGB HCT DIFFERENCE -0.9; MEAN CORPUSCULAR HEMOGLOBIN 27.9 pg (27.0-33.4); MEAN CORPUSCULAR HGB CONC 32.5 g/dL (32.0-36.0); MEAN CORPUSCULAR VOLUME 86 fl (80-97); RED BLOOD COUNT 3.59 10^6/uL (4.35-5.55); RED CELL DISTRIBUTION WIDTH 19.6 % (11.5-14.0); WHITE BLOOD COUNT 22.2 10^3/uL (4.0-10.5)
[2017-01-04 06:36] LABS: ANION GAP 10 (5-19); BLOOD UREA NITROGEN 10 mg/dL (7-20); CALCIUM 8.3 mg/dL (8.4-10.2); CARBON DIOXIDE 20 mmol/L (22-30); CHLORIDE 109 mmol/L (98-107); CREATININE RESULT 0.65 mg/dL (0.52-1.25); GLUCOSE 98 mg/dL (75-110); POTASSIUM 3.4 mmol/L (3.6-5.0); SODIUM 139.3 mmol/L (137-145)
[2017-01-04 06:38] LABS: BAND NEUTROPHILS % (MANUAL) 1 % (3-5); EOSINOPHILS % (MANUAL) 0 % (0-6); TOTAL CELLS COUNTED 100
[2017-01-04 06:39] LABS: ANISOCYTOSIS 2+; BASOPHILS % (MANUAL) 1 % (0-2); HYPOCHROMASIA SLIGHT; LYMPHOCYTES % (MANUAL) 2 % (13-45); POLYCHROMASIA 1+; TOXIC GRANULATION 2+; TOXIC VACUOLATION PRESENT
[2017-01-04] MEDS ORDERED: HYDRALAZINE HCL INJ/PF 20 MG/1 ML SDV IV PRN (08:30)
--- NOTE | 2017-01-04 09:48 | PDOC PROGRESS REPORT ---
Subjective Progress Note for:: 01/04/17 Subjective:: Patient reports that his back pain is tolerable. Physical Exam Vital Signs: Temp Pulse Resp BP Pulse Ox 98.8 F 76 18 158/82 H 97 01/04/17 07:29 01/04/17 07:29 01/04/17 07:29 01/04/17 07:29 01/04/17 07:29 Intake & Output 01/03/17 01/04/17 01/05/17 06:59 06:59 06:59 Intake Total 6423 4024 Output Total 3175 1925 Balance 3248 2099 Weight 72.2 kg 74.1 kg General appearance: PRESENT: no acute distress Eye exam: PRESENT: conjunctiva pink. ABSENT: scleral icterus Mouth exam: PRESENT: moist, tongue midline Neck exam: ABSENT: JVD Respiratory exam: PRESENT: clear to auscultation cuate. ABSENT: rales, rhonchi, wheezes Cardiovascular exam: PRESENT: RRR. ABSENT: diastolic murmur, rubs, systolic murmur GI/Abdominal exam: PRESENT: normal bowel sounds, soft. ABSENT: distended, guarding, mass, organolmegaly, rebound, tenderness Extremities exam: ABSENT: calf tenderness, clubbing, pedal edema Neurological exam: PRESENT: alert, awake, oriented to person, oriented to place , oriented to time, oriented to situation, CN II-XII grossly intact. ABSENT: motor sensory deficit Psychiatric exam: PRESENT: appropriate affect Skin exam: PRESENT: other - Dressing in place on the back. Results Laboratory Results: 01/04/17 05:05 01/04/17 05:02 01/03/17 01/04/17 01/04/17 10:05 05:02 05:05 WBC 22.2 H RBC 3.59 L Hgb 10.0 L Hct 30.9 L MCV 86 MCH 27.9 MCHC 32.5 RDW 19.6 H Plt Count 299 Seg Neutrophils % Not Reportable Lymphocytes % Not Reportable Monocytes % Not Reportable Eosinophils % Not Reportable Basophils % Not Reportable Absolute Neutrophils Not Reportable Absolute Lymphocytes Not Reportable Absolute Monocytes Not Reportable Absolute Eosinophils Not Reportable Absolute Basophils Not Reportable Sodium 139.3 Potassium 3.4 L Chloride 109 H Carbon Dioxide 20 L Anion Gap 10 BUN 10 Creatinine 0.73 0.65 Est GFR ( Amer) > 60 > 60 Est GFR (Non-Af Amer) > 60 > 60 Glucose 98 Calcium 8.3 L Assessment & Plan - Diagnosis (1) Sepsis Qualifiers: Sepsis type: sepsis due to unspecified organism Qualified Code(s): A41.9 - Sepsis, unspecified organism Is this a current diagnosis for this admission?: Yes Plan: Secondary to an abscess on his back. (2) Abscess of back Is this a current diagnosis for this admission?: Yes Plan: The patient is growing staph aureus from cultures. Patient has been changed to Ancef. (3) Anemia of chronic disease Is this a current diagnosis for this admission?: Yes (4) Coronary artery disease Qualifiers: Coronary Disease-Associated Artery/Lesion type: [place] artery [place] vs. transplanted heart: [place] heart Associated angina: without angina Qualified Code(s): I25.10 - Atherosclerotic heart disease of [place] coronary artery without angina pectoris Is this a current diagnosis for this admission?: Yes Plan: Denies any chest pain. (5) Essential hypertension Is this a current diagnosis for this admission?: Yes Plan: Patient's blood pressure has been elevated. He normally takes Plendil but we do not have that on formulary will continue Norvasc instead. Also will give as needed hydralazine. (6) History of stroke Is this a current diagnosis for this admission?: Yes - Time Time Spent with patient: 25-34 minutes - Inpatient Certification Medical Necessity: Need for IV Antibiotics
[2017-01-04] MEDS: MORPHINE SULFATE 10 MG/ML INJ IV PRN ×2 (10:02→23:30)
[2017-01-04] MEDS ORDERED: LIDOCAINE 1% INJ-PF (10 MG/ML) 30 ML SDV ONE (11:24)
[2017-01-04] MEDS ORDERED: MIDAZOLAM 2 MG/2 ML INJ ONE (11:38)
[2017-01-04] MEDS ORDERED: FENTANYL CITRATE INJ/PF 100 MCG/2 ML AMPUL ONE (11:38)
[2017-01-04] MEDS ORDERED: PROPOFOL INJ 200 MG/20 ML VIAL IV ONE (11:39)
[2017-01-04] MEDS ORDERED: PROMETHAZINE HCL INJ 25 MG/1 ML VIAL IV PRN ×2 (12:09)
[2017-01-04] MEDS ORDERED: FENTANYL CITRATE INJ/PF 100 MCG/2 ML AMPUL IV PRN ×3 (12:09)
[2017-01-04] MEDS ORDERED: OXYCODONE-ACETAMINOPHEN 5-325 MG TABLET PO PRN ×2 (12:09)
[2017-01-04] MEDS ORDERED: MORPHINE SULFATE 10 MG/ML INJ IV PRN (12:09)
[2017-01-04] MEDS ORDERED: MEPERIDINE HCL/PF INJ 25 MG/1 ML DISP.SYRIN IV PRN (12:09)
[2017-01-04] MEDS ORDERED: DIPHENHYDRAMINE HCL 50 MG/ML VIAL IV PRN (12:09)
[2017-01-04] MEDS ORDERED: MORPHINE SULFATE 10 MG/ML INJ ONE (12:42)
--- NOTE | 2017-01-04 13:28 | OPERATIVE REPORT E ---
Operative Report NAME: GISSELLE DUFF : 1945 AGE: 71Y DATE OF SURGERY: ROOM: 316 PREOPERATIVE DIAGNOSIS: ABSCESS OF THE RIGHT LOWER BACK. POSTOPERATIVE DIAGNOSIS: ABSCESS OF THE RIGHT LOWER BACK. OPERATION: Debridement and ligation of bleeder along the right lower back abscess. SURGEON: YOHANNES LENNON M.D. ANESTHESIA: Local/MAC. INDICATION: This is a 71-year-old male who had developed a large abscess of the right lower back. It is positive for gram-positive cocci and also had some gram-positive cocci in the blood at the same time. He already had about 2 debridements in the OR. Plan today is to debride and possibly put a wound VAC. PROCEDURE: After adequate IV sedation, the patient was placed in the left lateral decubitus position with the right side up. Appropriate timeout was called. Next, the area was then prepped and draped in a sterile fashion and after appropriate timeout was subsequently draped. Next, local anesthesia infiltrated around the abscess, primarily on the medial side. With the use of a curette, superficial layers of the abscess with a minimal amount of exudate. However, there was an area on the medial side that was tunneling and noted to have some more necrotic tissue. This was then debrided with the use of scissors and a curette down to normal tissue. A few other areas with necrotic sites were then debrided with the use of a curette. An area on the midpart of the wound had a bridge and this was then divided and there was some bleeding noted. The bleeding was then suture ligated with 3-0 Vicryl on each side of the bleeder. There was also backbleeding on the one side and this was then suture ligated also with a 4-0 Vicryl. Following this, the area was then pulse lavaged with 2 liters of saline and following this hemostasis obtained with cautery. Further debridement was done and then finally another pulse lavage, this time using about a liter of saline, was done. Adequate hemostasis was noted. We felt that the wound may not be ready for a wound VAC at this time because of the new site of abscess area. At any rate, the wound may be ready for a wound VAC in 24-48 hours. Needle, instrument and sponge counts were all correct. The area was then packed with 2 bottles of half-inch iodoform gauze. A sterile dressing was placed over it. The patient tolerated the procedure well and brought back to the recovery room in satisfactory condition. Estimated blood loss was about 30 mL. DICTATING PHYSICIAN: YOHANNES LENNON M.D. [id number] PHY#: [id number] ID: [id number] JOB#: [id number] ACCT: [id number] cc:YOHANNES LENNON M.D. >
[2017-01-04] MEDS ORDERED: INFLUENZA ADLT QUAD (36MOS+) 2017-18 VAC 0.5 ML SYR IM PRN (14:00)
[2017-01-04] MEDS: ENOXAPARIN SODIUM INJ 40 MG/0.4 ML DISP.SYRIN SUBCUT SCH (15:54)
[2017-01-04] MEDS: METOPROLOL SUCCINATE 50 MG TAB.SR.24H PO SCH (16:41)
[2017-01-04] MEDS: DOCUSATE SODIUM 100 MG CAPSULE PO SCH ×2 (16:42→18:22)
[2017-01-04] MEDS: FINASTERIDE 5 MG TABLET PO SCH (16:43)
[2017-01-04] MEDS: ALLOPURINOL 300 MG TABLET PO SCH (16:43)
[2017-01-04] MEDS: AMLODIPINE BESYLATE 5 MG TABLET PO SCH (16:43)
[2017-01-04] MEDS: ASPIRIN 81 MG TABLET, ENT COATED PO SCH (16:43)
[2017-01-04] MEDS: BRIMONIDINE TARTRATE 0.2% OPH SOLN 5 ML OU SCH ×2 (16:47→21:01)
[2017-01-04] MEDS: POTASSIUM CHLORIDE 10 MEQ TABLET.SA PO SCH ×2 (16:52→21:03)
[2017-01-04] MEDS: TAMSULOSIN HCL 0.4 MG CAP.SR.24H PO SCH (18:22)
[2017-01-04] MEDS: ATORVASTATIN CALCIUM 80 MG TABLET PO SCH (21:03)
[2017-01-05] MEDS: OXYCODONE-ACETAMINOPHEN 5-325 MG TABLET PO PRN ×3 (03:50→17:51)
[2017-01-05 04:49] LABS: ABSOLUTE BASOPHILS # (AUTO) 0.1 10^3/uL (0.0-0.2); ABSOLUTE EOSINOPHILS # (AUTO) 0.5 10^3/uL (0.0-0.6); ABSOLUTE MONOCYTES (AUTO) 1.3 10^3/uL (0.1-1.4); ABSOLUTE NEUT (AUTO) 15.4 10^3/uL (1.7-8.2); BASOPHILS % (AUTO) 0.7 % (0-2); EOSINOPHILS % (AUTO) 2.5 % (0-6); HEMATOCRIT 28.8 % (37.9-51.0); HEMOGLOBIN 9.7 g/dL (13.5-17.0); HGB HCT DIFFERENCE 0.3; LYMPHOCYTES % (AUTO) 5.7 % (13-45); MEAN CORPUSCULAR HEMOGLOBIN 28.6 pg (27.0-33.4); MEAN CORPUSCULAR HGB CONC 33.8 g/dL (32.0-36.0); MEAN CORPUSCULAR VOLUME 85 fl (80-97); MONOCYTES % (AUTO) 6.9 % (3-13); RED CELL DISTRIBUTION WIDTH 19.1 % (11.5-14.0); SEGMENTED NEUTROPHILS % (AUTO) 84.2 % (42-78); WHITE BLOOD COUNT 18.3 10^3/uL (4.0-10.5)
[2017-01-05] MEDS: CEFAZOLIN 2 GM/D5W RTU 2 GM/50 ML RTUPB IV SCH ×2 (05:04→13:33)
[2017-01-05] MEDS: BRIMONIDINE TARTRATE 0.2% OPH SOLN 5 ML OU SCH ×3 (05:05→21:37)
[2017-01-05 05:13] LABS: ANION GAP 9 (5-19); BLOOD UREA NITROGEN 10 mg/dL (7-20); CARBON DIOXIDE 21 mmol/L (22-30); CHLORIDE 110 mmol/L (98-107); GLUCOSE 106 mg/dL (75-110); POTASSIUM 3.7 mmol/L (3.6-5.0); SODIUM 139.5 mmol/L (137-145)
[2017-01-05] MEDS: ENOXAPARIN SODIUM INJ 40 MG/0.4 ML DISP.SYRIN SUBCUT SCH (07:50)
[2017-01-05] MEDS: MORPHINE SULFATE 10 MG/ML INJ IV PRN ×2 (08:13→17:18)
[2017-01-05] MEDS: METOPROLOL SUCCINATE 50 MG TAB.SR.24H PO SCH (11:19)
[2017-01-05] MEDS: DOCUSATE SODIUM 100 MG CAPSULE PO SCH ×2 (11:20→17:51)
[2017-01-05] MEDS: ALLOPURINOL 300 MG TABLET PO SCH (11:20)
[2017-01-05] MEDS: AMLODIPINE BESYLATE 5 MG TABLET PO SCH (11:20)
[2017-01-05] MEDS: ASPIRIN 81 MG TABLET, ENT COATED PO SCH (11:20)
[2017-01-05] MEDS: POTASSIUM CHLORIDE 10 MEQ TABLET.SA PO SCH ×2 (11:21→21:36)
[2017-01-05] MEDS: FINASTERIDE 5 MG TABLET PO SCH (11:21)
[2017-01-05] MEDS: NORMAL SALINE 1000 ML 1,000 ML IV PRN ×2 (11:29→21:46)
--- NOTE | 2017-01-05 11:34 | PDOC PROGRESS REPORT ---
Subjective Progress Note for:: 01/05/17 Subjective:: Patient reports that his back pain is tolerable. Physical Exam Vital Signs: Temp Pulse Resp BP Pulse Ox 98.2 F 116 H 20 151/79 H 100 01/05/17 07:31 01/05/17 07:31 01/05/17 07:31 01/05/17 07:31 01/05/17 07:31 Intake & Output 01/04/17 01/05/17 01/06/17 06:59 06:59 06:59 Intake Total 4024 04305 Output Total 5913 2500 Balance 2092 7863 Weight 73.9 kg General appearance: PRESENT: no acute distress Eye exam: PRESENT: conjunctiva pink. ABSENT: scleral icterus Ear exam: PRESENT: normal external ear exam Mouth exam: PRESENT: moist, tongue midline Neck exam: ABSENT: JVD Respiratory exam: PRESENT: clear to auscultation cuate. ABSENT: rales, rhonchi, wheezes Cardiovascular exam: PRESENT: RRR. ABSENT: diastolic murmur, rubs, systolic murmur GI/Abdominal exam: PRESENT: normal bowel sounds, soft. ABSENT: distended, guarding, mass, organolmegaly, rebound, tenderness Extremities exam: ABSENT: calf tenderness, clubbing, pedal edema Neurological exam: PRESENT: alert, awake, oriented to person, oriented to place , oriented to time, oriented to situation, CN II-XII grossly intact. ABSENT: motor sensory deficit Psychiatric exam: PRESENT: appropriate affect Skin exam: PRESENT: other - Dressing in place on the lower back. Results Laboratory Results: 01/05/17 04:26 01/05/17 04:26 01/05/17 01/05/17 04:26 04:26 WBC 18.3 H RBC 3.40 L Hgb 9.7 L Hct 28.8 L MCV 85 MCH 28.6 MCHC 33.8 RDW 19.1 H Plt Count 297 Seg Neutrophils % 84.2 H Lymphocytes % 5.7 L Monocytes % 6.9 Eosinophils % 2.5 Basophils % 0.7 Absolute Neutrophils 15.4 H Absolute Lymphocytes 1.0 Absolute Monocytes 1.3 Absolute Eosinophils 0.5 Absolute Basophils 0.1 Sodium 139.5 Potassium 3.7 Chloride 110 H Carbon Dioxide 21 L Anion Gap 9 BUN 10 Creatinine 0.70 Est GFR ( Amer) > 60 Est GFR (Non-Af Amer) > 60 Glucose 106 Calcium 8.0 L 01/02/17 16:47 Back - Abscess Gram Stain - Final Assessment & Plan - Diagnosis (1) Sepsis Qualifiers: Sepsis type: sepsis due to unspecified organism Qualified Code(s): A41.9 - Sepsis, unspecified organism Is this a current diagnosis for this admission?: Yes Plan: Secondary to an abscess on his back. (2) Abscess of back Is this a current diagnosis for this admission?: Yes Plan: The patient is growing staph aureus from cultures. Patient has been changed to Ancef. (3) Anemia of chronic disease Is this a current diagnosis for this admission?: Yes (4) Coronary artery disease Qualifiers: Coronary Disease-Associated Artery/Lesion type: [place] artery [place] vs. transplanted heart: [place] heart Associated angina: without angina Qualified Code(s): I25.10 - Atherosclerotic heart disease of [place] coronary artery without angina pectoris Is this a current diagnosis for this admission?: Yes Plan: Denies any chest pain. (5) Essential hypertension Is this a current diagnosis for this admission?: Yes Plan: Patient's blood pressure has been elevated. He normally takes Plendil but we do not have that on formulary will continue Norvasc instead. Also will give as needed hydralazine. (6) History of stroke Is this a current diagnosis for this admission?: Yes - Time Time Spent with patient: 25-34 minutes - Inpatient Certification Medical Necessity: Need for IV Antibiotics
[2017-01-05] MEDS ORDERED: POLYETHYLENE GLYCOL 3350 POWDER 17 GM/1 PACKET PO ONE (12:30)
[2017-01-05] MEDS: TAMSULOSIN HCL 0.4 MG CAP.SR.24H PO SCH (17:53)
--- NOTE | 2017-01-05 19:13 | PROGRESS NOTE E ---
Progress Note NAME: GISSELLE DUFF : 1945 AGE: 71Y DATE: 01/05/2017 ROOM: 316 SUBJECTIVE: This is about the fifth postop day from the first operation. I took him to the OR yesterday and further debrided and pulse lavaged and packed. Today the wound was inspected and the wound looks very clean. A wound VAC was then applied over the wound, which roughly measured about 15 cm transversely, 5 cm across, and about 3 cm deep. A wound VAC was placed into the wound and connected to suction at -125 mmHg pressure. The patient was given morphine prior to placement of the VAC and he tolerated the procedure well. Also the cultures showed Staphylococcus aureus more sensitive to clindamycin and, therefore, his antibiotic was changed to clindamycin from Ancef. His white count also trending down to about 18,000. PLAN: The plan is to continue IV antibiotics for another 48-72 hours and then continue the wound VAC at [facility] where he is [facility] from his open heart surgery. He will need a lot of physical therapy because of deconditioning of his lower extremities. Meantime continue him on IV antibiotic therapy. DICTATING PHYSICIAN: YOHANNES LENNON M.D. [id number] PHY#: [id number] ID: [id number] JOB#: [id number] ACCT: [id number] cc: >
--- NOTE | 2017-01-05 19:22 | OPERATIVE REPORT E ---
Operative Report NAME: GISSELLE DUFF : 1945 AGE: 71Y DATE OF SURGERY: 01/05/2017 ROOM: 316 PREOPERATIVE DIAGNOSIS: Abscess of the right lower back. POSTOPERATIVE DIAGNOSIS: Abscess of the right lower back. OPERATION: Placement of wound VAC to the right lower back and abscess site. SURGEON: YOHANNES LENNON M.D. ANESTHESIA: Sedation. INDICATION: This is a 71-year-old male who had a previous open heart surgery about a month and a half ago. He developed an abscess of the right lower back that was initially drained on 12/31/16 and then on 01/02/17, and then the last time on 01/04/17. Today, the wound looks good and no evidence of necrotic tissue or abscess. His white count is also trending down. DESCRIPTION OF PROCEDURE: The patient was given 4 mg of IV morphine. Next, a foam was measured to match his lower back wound which roughly measured about 15 cm x 4 cm x 3 cm deep. After the foam was placed into the wound, an adhesive was placed around the foam which made adhesive better by placement of tincture of benzoin on the skin. Next, a little opening was made in the middle of the foam, and the other part of the wound VAC for suction was placed on top of the hole previously made. The catheter was then connected to suction at -125 mmHg pressure. The appliance was then activated, and there was good suctioning without any leak. The patient tolerated the procedure well. DICTATING PHYSICIAN: YOHANNES LENNON M.D. [id number] PHY#: [id number] ID: [id number] JOB#: [id number] ACCT: [id number] cc:YOHANNES LENNON M.D. >
[2017-01-05] MEDS: ATORVASTATIN CALCIUM 80 MG TABLET PO SCH (21:36)
[2017-01-05] MEDS: CLINDAMYCIN 900 MG/D5W RTU 50 ML IV SCH (21:36)
[2017-01-06] MEDS: CLINDAMYCIN 900 MG/D5W RTU 50 ML IV SCH ×3 (05:05→22:10)
[2017-01-06] MEDS: OXYCODONE-ACETAMINOPHEN 5-325 MG TABLET PO PRN ×3 (05:06→22:20)
[2017-01-06] MEDS: BRIMONIDINE TARTRATE 0.2% OPH SOLN 5 ML OU SCH ×3 (05:06→22:19)
[2017-01-06 06:01] LABS: ABSOLUTE BASOPHILS # (AUTO) 0.1 10^3/uL (0.0-0.2); ABSOLUTE EOSINOPHILS # (AUTO) 0.7 10^3/uL (0.0-0.6); ABSOLUTE LYMPHOCYTES (AUTO) 1.2 10^3/uL (0.5-4.7); ABSOLUTE NEUT (AUTO) 13.1 10^3/uL (1.7-8.2); BASOPHILS % (AUTO) 0.5 % (0-2); EOSINOPHILS % (AUTO) 4.5 % (0-6); HEMATOCRIT 28.7 % (37.9-51.0); HEMOGLOBIN 9.3 g/dL (13.5-17.0); HGB HCT DIFFERENCE -0.8; LYMPHOCYTES % (AUTO) 7.7 % (13-45); MEAN CORPUSCULAR HEMOGLOBIN 28.3 pg (27.0-33.4); MEAN CORPUSCULAR HGB CONC 32.6 g/dL (32.0-36.0); MEAN CORPUSCULAR VOLUME 87 fl (80-97); MONOCYTES % (AUTO) 6.1 % (3-13); RED CELL DISTRIBUTION WIDTH 19.4 % (11.5-14.0); SEGMENTED NEUTROPHILS % (AUTO) 81.2 % (42-78); WHITE BLOOD COUNT 16.1 10^3/uL (4.0-10.5)
[2017-01-06 06:13] LABS: ANION GAP 12 (5-19); BLOOD UREA NITROGEN 11 mg/dL (7-20); CALCIUM 8.1 mg/dL (8.4-10.2); CARBON DIOXIDE 23 mmol/L (22-30); CHLORIDE 108 mmol/L (98-107); CREATININE RESULT 0.72 mg/dL (0.52-1.25); GLUCOSE 105 mg/dL (75-110); POTASSIUM 4.4 mmol/L (3.6-5.0)
[2017-01-06] MEDS: ALLOPURINOL 300 MG TABLET PO SCH (09:33)
[2017-01-06] MEDS: AMLODIPINE BESYLATE 5 MG TABLET PO SCH (09:33)
[2017-01-06] MEDS: FINASTERIDE 5 MG TABLET PO SCH (09:34)
[2017-01-06] MEDS: METOPROLOL SUCCINATE 50 MG TAB.SR.24H PO SCH (09:34)
[2017-01-06] MEDS: ENOXAPARIN SODIUM INJ 40 MG/0.4 ML DISP.SYRIN SUBCUT SCH (09:35)
[2017-01-06] MEDS: POLYETHYLENE GLYCOL 3350 POWDER 17 GM/1 PACKET PO SCH (09:35)
[2017-01-06] MEDS: ASPIRIN 81 MG TABLET, ENT COATED PO SCH (09:35)
[2017-01-06] MEDS: DOCUSATE SODIUM 100 MG CAPSULE PO SCH ×2 (09:35→17:11)
--- NOTE | 2017-01-06 09:37 | PDOC PROGRESS REPORT ---
Subjective Progress Note for:: 01/06/17 Subjective:: feeling better Physical Exam Vital Signs: Temp Pulse Resp BP Pulse Ox 98.6 F 83 20 130/82 H 97 01/06/17 07:28 01/06/17 07:28 01/06/17 07:28 01/06/17 07:28 01/06/17 07:28 Intake & Output 01/05/17 01/06/17 01/07/17 06:59 06:59 06:59 Intake Total 8411313 0675 Output Total 2061 0064 Balance 7835 525 Weight 73.9 kg 77.4 kg Torso Front/Back Image: 1 - back wound clean with wound vac Results Laboratory Results: 01/06/17 05:20 01/06/17 05:20 01/06/17 01/06/17 05:20 05:20 WBC 16.1 H RBC 3.30 L Hgb 9.3 L Hct 28.7 L MCV 87 MCH 28.3 MCHC 32.6 RDW 19.4 H Plt Count 331 Seg Neutrophils % 81.2 H Lymphocytes % 7.7 L Monocytes % 6.1 Eosinophils % 4.5 Basophils % 0.5 Absolute Neutrophils 13.1 H Absolute Lymphocytes 1.2 Absolute Monocytes 1.0 Absolute Eosinophils 0.7 H Absolute Basophils 0.1 Sodium 143.0 Potassium 4.4 Chloride 108 H Carbon Dioxide 23 Anion Gap 12 BUN 11 Creatinine 0.72 Est GFR ( Amer) > 60 Est GFR (Non-Af Amer) > 60 Glucose 105 Calcium 8.1 L 01/02/17 16:47 Back - Abscess Gram Stain - Final 01/02/17 16:47 Back - Abscess Wound Culture - Final Staphylococcus Aureus No Anaerobic Organisms Assessment & Plan - Plan Summary Plan Summary: wound of the back with wound vac dc plan Sunday with Home care
--- NOTE | 2017-01-06 09:52 | PDOC PROGRESS REPORT ---
Subjective Progress Note for:: 01/06/17 Subjective:: Patient reports that his back pain is improving Physical Exam Vital Signs: Temp Pulse Resp BP Pulse Ox 98.6 F 83 20 130/82 H 97 01/06/17 07:28 01/06/17 07:28 01/06/17 07:28 01/06/17 07:28 01/06/17 07:28 Intake & Output 01/05/17 01/06/17 01/07/17 06:59 06:59 06:59 Intake Total 93117 3175 Output Total 4238 2650 Balance 7835 525 Weight 73.9 kg 77.4 kg General appearance: PRESENT: no acute distress Eye exam: PRESENT: conjunctiva pink. ABSENT: scleral icterus Mouth exam: PRESENT: moist, tongue midline Neck exam: ABSENT: JVD Respiratory exam: PRESENT: clear to auscultation cuate. ABSENT: rales, rhonchi, wheezes Cardiovascular exam: PRESENT: RRR. ABSENT: diastolic murmur, rubs, systolic murmur GI/Abdominal exam: PRESENT: normal bowel sounds, soft. ABSENT: distended, guarding, mass, organolmegaly, rebound, tenderness Extremities exam: ABSENT: calf tenderness, clubbing, pedal edema Neurological exam: PRESENT: alert, awake, oriented to person, oriented to place , oriented to time, oriented to situation, CN II-XII grossly intact. ABSENT: motor sensory deficit Psychiatric exam: PRESENT: appropriate affect Skin exam: PRESENT: other - Wound VAC in place over the wound on the back Results Laboratory Results: 01/06/17 05:20 01/06/17 05:20 01/06/17 01/06/17 05:20 05:20 WBC 16.1 H RBC 3.30 L Hgb 9.3 L Hct 28.7 L MCV 87 MCH 28.3 MCHC 32.6 RDW 19.4 H Plt Count 331 Seg Neutrophils % 81.2 H Lymphocytes % 7.7 L Monocytes % 6.1 Eosinophils % 4.5 Basophils % 0.5 Absolute Neutrophils 13.1 H Absolute Lymphocytes 1.2 Absolute Monocytes 1.0 Absolute Eosinophils 0.7 H Absolute Basophils 0.1 Sodium 143.0 Potassium 4.4 Chloride 108 H Carbon Dioxide 23 Anion Gap 12 BUN 11 Creatinine 0.72 Est GFR ( Amer) > 60 Est GFR (Non-Af Amer) > 60 Glucose 105 Calcium 8.1 L 01/02/17 16:47 Back - Abscess Gram Stain - Final 01/02/17 16:47 Back - Abscess Wound Culture - Final Staphylococcus Aureus No Anaerobic Organisms Assessment & Plan - Diagnosis (1) Sepsis Qualifiers: Sepsis type: sepsis due to unspecified organism Qualified Code(s): A41.9 - Sepsis, unspecified organism Is this a current diagnosis for this admission?: Yes Plan: Secondary to an abscess on his back. (2) Abscess of back Is this a current diagnosis for this admission?: Yes Plan: The patient is growing staph aureus from cultures. Currently has a wound VAC in place (3) Anemia of chronic disease Is this a current diagnosis for this admission?: Yes (4) Coronary artery disease Qualifiers: Coronary Disease-Associated Artery/Lesion type: [place] artery [place] vs. transplanted heart: [place] heart Associated angina: without angina Qualified Code(s): I25.10 - Atherosclerotic heart disease of [place] coronary artery without angina pectoris Is this a current diagnosis for this admission?: Yes Plan: Denies any chest pain. (5) Essential hypertension Is this a current diagnosis for this admission?: Yes Plan: Patient's blood pressure has been elevated. He normally takes Plendil but we do not have that on formulary will continue Norvasc instead. Also will give as needed hydralazine. (6) History of stroke Is this a current diagnosis for this admission?: Yes - Time Time Spent with patient: 25-34 minutes - Inpatient Certification Medical Necessity: Need for IV Antibiotics
[2017-01-06] MEDS: TAMSULOSIN HCL 0.4 MG CAP.SR.24H PO SCH (17:11)
[2017-01-06] MEDS: ATORVASTATIN CALCIUM 80 MG TABLET PO SCH (22:10)
[2017-01-07 05:04] LABS: ABSOLUTE BASOPHILS # (AUTO) 0.1 10^3/uL (0.0-0.2); ABSOLUTE EOSINOPHILS # (AUTO) 0.7 10^3/uL (0.0-0.6); ABSOLUTE LYMPHOCYTES (AUTO) 1.5 10^3/uL (0.5-4.7); ABSOLUTE MONOCYTES (AUTO) 0.8 10^3/uL (0.1-1.4); ABSOLUTE NEUT (AUTO) 11.2 10^3/uL (1.7-8.2); BASOPHILS % (AUTO) 0.9 % (0-2); EOSINOPHILS % (AUTO) 4.8 % (0-6); HEMATOCRIT 28.6 % (37.9-51.0); HEMOGLOBIN 9.6 g/dL (13.5-17.0); HGB HCT DIFFERENCE 0.2; LYMPHOCYTES % (AUTO) 10.4 % (13-45); MEAN CORPUSCULAR HEMOGLOBIN 28.8 pg (27.0-33.4); MEAN CORPUSCULAR HGB CONC 33.6 g/dL (32.0-36.0); MEAN CORPUSCULAR VOLUME 86 fl (80-97); MONOCYTES % (AUTO) 5.8 % (3-13); RED BLOOD COUNT 3.35 10^6/uL (4.35-5.55); RED CELL DISTRIBUTION WIDTH 19.2 % (11.5-14.0); SEGMENTED NEUTROPHILS % (AUTO) 78.1 % (42-78); WHITE BLOOD COUNT 14.3 10^3/uL (4.0-10.5)
[2017-01-07 05:24] LABS: ANION GAP 11 (5-19); BLOOD UREA NITROGEN 13 mg/dL (7-20); CALCIUM 8.5 mg/dL (8.4-10.2); CARBON DIOXIDE 25 mmol/L (22-30); CHLORIDE 107 mmol/L (98-107); CREATININE RESULT 0.85 mg/dL (0.52-1.25); GLUCOSE 114 mg/dL (75-110); POTASSIUM 4.3 mmol/L (3.6-5.0); SODIUM 143.1 mmol/L (137-145)
[2017-01-07] MEDS: OXYCODONE-ACETAMINOPHEN 5-325 MG TABLET PO PRN ×2 (06:16→22:07)
[2017-01-07] MEDS: CLINDAMYCIN 900 MG/D5W RTU 50 ML IV SCH ×3 (06:18→22:07)
[2017-01-07] MEDS: BRIMONIDINE TARTRATE 0.2% OPH SOLN 5 ML OU SCH ×3 (06:18→22:06)
[2017-01-07] MEDS: ALLOPURINOL 300 MG TABLET PO SCH (09:24)
[2017-01-07] MEDS: AMLODIPINE BESYLATE 5 MG TABLET PO SCH (09:24)
[2017-01-07] MEDS: POLYETHYLENE GLYCOL 3350 POWDER 17 GM/1 PACKET PO SCH (09:24)
[2017-01-07] MEDS: FINASTERIDE 5 MG TABLET PO SCH (09:25)
[2017-01-07] MEDS: METOPROLOL SUCCINATE 50 MG TAB.SR.24H PO SCH (09:25)
[2017-01-07] MEDS: ASPIRIN 81 MG TABLET, ENT COATED PO SCH (09:25)
[2017-01-07] MEDS: DOCUSATE SODIUM 100 MG CAPSULE PO SCH ×2 (09:25→18:12)
[2017-01-07] MEDS: ENOXAPARIN SODIUM INJ 40 MG/0.4 ML DISP.SYRIN SUBCUT SCH (09:25)
--- NOTE | 2017-01-07 13:33 | PDOC PROGRESS REPORT ---
Subjective Progress Note for:: 01/07/17 Subjective:: Denies any complaints. Physical Exam Vital Signs: Temp Pulse Resp BP Pulse Ox 98.3 F 77 20 149/85 H 100 01/07/17 12:26 01/07/17 12:26 01/07/17 12:26 01/07/17 12:26 01/07/17 12:26 Intake & Output 01/06/17 01/07/17 01/08/17 06:59 06:59 06:59 Intake Total 3175 1182 Output Total 2650 375 Balance 525 807 Weight 77.4 kg 75.6 kg General appearance: PRESENT: no acute distress Eye exam: PRESENT: conjunctiva pink. ABSENT: scleral icterus Mouth exam: PRESENT: moist, tongue midline Neck exam: ABSENT: JVD Respiratory exam: PRESENT: clear to auscultation cuate. ABSENT: rales, rhonchi, wheezes Cardiovascular exam: PRESENT: RRR. ABSENT: diastolic murmur, rubs, systolic murmur GI/Abdominal exam: PRESENT: normal bowel sounds, soft. ABSENT: distended, guarding, mass, organolmegaly, rebound, tenderness Extremities exam: ABSENT: calf tenderness, clubbing, pedal edema Neurological exam: PRESENT: alert, awake, oriented to person, oriented to place , oriented to time, oriented to situation, CN II-XII grossly intact. ABSENT: motor sensory deficit Psychiatric exam: PRESENT: appropriate affect Skin exam: PRESENT: other - Wound VAC in place on the back. Results Laboratory Results: 01/07/17 04:34 01/07/17 04:34 01/07/17 01/07/17 04:34 04:34 WBC 14.3 H RBC 3.35 L Hgb 9.6 L Hct 28.6 L MCV 86 MCH 28.8 MCHC 33.6 RDW 19.2 H Plt Count 355 Seg Neutrophils % 78.1 H Lymphocytes % 10.4 L Monocytes % 5.8 Eosinophils % 4.8 Basophils % 0.9 Absolute Neutrophils 11.2 H Absolute Lymphocytes 1.5 Absolute Monocytes 0.8 Absolute Eosinophils 0.7 H Absolute Basophils 0.1 Sodium 143.1 Potassium 4.3 Chloride 107 Carbon Dioxide 25 Anion Gap 11 BUN 13 Creatinine 0.85 Est GFR ( Amer) > 60 Est GFR (Non-Af Amer) > 60 Glucose 114 H Calcium 8.5 Assessment & Plan - Diagnosis (1) Sepsis Qualifiers: Sepsis type: sepsis due to unspecified organism Qualified Code(s): A41.9 - Sepsis, unspecified organism Is this a current diagnosis for this admission?: Yes Plan: Secondary to an abscess on his back. (2) Abscess of back Is this a current diagnosis for this admission?: Yes Plan: The patient is growing staph aureus from cultures. Currently has a wound VAC in place (3) Anemia of chronic disease Is this a current diagnosis for this admission?: Yes (4) Coronary artery disease Qualifiers: Coronary Disease-Associated Artery/Lesion type: [place] artery [place] vs. transplanted heart: [place] heart Associated angina: without angina Qualified Code(s): I25.10 - Atherosclerotic heart disease of [place] coronary artery without angina pectoris Is this a current diagnosis for this admission?: Yes Plan: Denies any chest pain. (5) Essential hypertension Is this a current diagnosis for this admission?: Yes Plan: Patient's blood pressure has been elevated. He normally takes Plendil but we do not have that on formulary will continue Norvasc instead. Also will give as needed hydralazine. (6) History of stroke Is this a current diagnosis for this admission?: Yes - Time Time Spent with patient: 15-24 minutes - Inpatient Certification Medical Necessity: Need for IV Antibiotics
[2017-01-07] MEDS: TAMSULOSIN HCL 0.4 MG CAP.SR.24H PO SCH (18:12)
[2017-01-07] MEDS: ATORVASTATIN CALCIUM 80 MG TABLET PO SCH (22:06)
[2017-01-08] MEDS: OXYCODONE-ACETAMINOPHEN 5-325 MG TABLET PO PRN ×3 (03:53→21:22)
[2017-01-08 05:13] LABS: ABSOLUTE EOSINOPHILS # (AUTO) 0.6 10^3/uL (0.0-0.6); ABSOLUTE LYMPHOCYTES (AUTO) 1.1 10^3/uL (0.5-4.7); ABSOLUTE MONOCYTES (AUTO) 0.7 10^3/uL (0.1-1.4); ABSOLUTE NEUT (AUTO) 7.9 10^3/uL (1.7-8.2); BASOPHILS % (AUTO) 0.3 % (0-2); EOSINOPHILS % (AUTO) 5.8 % (0-6); HEMATOCRIT 29.1 % (37.9-51.0); HEMOGLOBIN 9.6 g/dL (13.5-17.0); HGB HCT DIFFERENCE -0.3; LYMPHOCYTES % (AUTO) 10.9 % (13-45); MEAN CORPUSCULAR HEMOGLOBIN 28.3 pg (27.0-33.4); MEAN CORPUSCULAR HGB CONC 33.1 g/dL (32.0-36.0); MEAN CORPUSCULAR VOLUME 86 fl (80-97); MONOCYTES % (AUTO) 6.5 % (3-13); RED CELL DISTRIBUTION WIDTH 19.1 % (11.5-14.0); SEGMENTED NEUTROPHILS % (AUTO) 76.5 % (42-78); WHITE BLOOD COUNT 10.3 10^3/uL (4.0-10.5)
[2017-01-08 05:37] LABS: ANION GAP 9 (5-19); BLOOD UREA NITROGEN 14 mg/dL (7-20); CALCIUM 8.4 mg/dL (8.4-10.2); CARBON DIOXIDE 25 mmol/L (22-30); CHLORIDE 109 mmol/L (98-107); CREATININE RESULT 0.93 mg/dL (0.52-1.25); GLUCOSE 101 mg/dL (75-110); POTASSIUM 3.7 mmol/L (3.6-5.0)
[2017-01-08] MEDS: BRIMONIDINE TARTRATE 0.2% OPH SOLN 5 ML OU SCH ×3 (05:55→21:22)
[2017-01-08] MEDS: CLINDAMYCIN 900 MG/D5W RTU 50 ML IV SCH ×2 (05:55→14:04)
[2017-01-08] MEDS: DOCUSATE SODIUM 100 MG CAPSULE PO SCH ×2 (09:37→16:58)
[2017-01-08] MEDS: FINASTERIDE 5 MG TABLET PO SCH (09:37)
[2017-01-08] MEDS: ALLOPURINOL 300 MG TABLET PO SCH (09:37)
[2017-01-08] MEDS: ENOXAPARIN SODIUM INJ 40 MG/0.4 ML DISP.SYRIN SUBCUT SCH (09:37)
[2017-01-08] MEDS: METOPROLOL SUCCINATE 50 MG TAB.SR.24H PO SCH (09:38)
[2017-01-08] MEDS: ASPIRIN 81 MG TABLET, ENT COATED PO SCH (09:38)
[2017-01-08] MEDS: AMLODIPINE BESYLATE 5 MG TABLET PO SCH (09:39)
[2017-01-08] MEDS: POLYETHYLENE GLYCOL 3350 POWDER 17 GM/1 PACKET PO SCH (09:39)
--- NOTE | 2017-01-08 10:28 | PDOC PROGRESS REPORT ---
Subjective Progress Note for:: 01/08/17 Subjective:: Denies any complaints. Physical Exam Vital Signs: Temp Pulse Resp BP Pulse Ox 97.9 F 67 16 140/81 H 100 01/08/17 07:21 01/08/17 07:21 01/08/17 07:21 01/08/17 07:21 01/08/17 07:21 Intake & Output 01/07/17 01/08/17 01/09/17 06:59 06:59 06:59 Intake Total 1182 1389 Output Total 375 1000 Balance 807 389 Weight 75.6 kg 78.2 kg 78.2 kg General appearance: PRESENT: no acute distress Eye exam: PRESENT: conjunctiva pink. ABSENT: scleral icterus Mouth exam: PRESENT: moist, tongue midline Neck exam: ABSENT: JVD Respiratory exam: PRESENT: clear to auscultation cuate. ABSENT: rales, rhonchi, wheezes Cardiovascular exam: PRESENT: RRR. ABSENT: diastolic murmur, rubs, systolic murmur GI/Abdominal exam: PRESENT: normal bowel sounds, soft. ABSENT: distended, guarding, mass, organolmegaly, rebound, tenderness Extremities exam: ABSENT: calf tenderness, clubbing, pedal edema Neurological exam: PRESENT: alert, awake, oriented to person, oriented to place , oriented to time, oriented to situation, CN II-XII grossly intact. ABSENT: motor sensory deficit Psychiatric exam: PRESENT: appropriate affect Skin exam: PRESENT: other - Wound VAC in place on the right lower back. Results Laboratory Results: 01/08/17 04:44 01/08/17 04:44 01/08/17 01/08/17 04:44 04:44 WBC 10.3 RBC 3.40 L Hgb 9.6 L Hct 29.1 L MCV 86 MCH 28.3 MCHC 33.1 RDW 19.1 H Plt Count 373 Seg Neutrophils % 76.5 Lymphocytes % 10.9 L Monocytes % 6.5 Eosinophils % 5.8 Basophils % 0.3 Absolute Neutrophils 7.9 Absolute Lymphocytes 1.1 Absolute Monocytes 0.7 Absolute Eosinophils 0.6 Absolute Basophils 0.0 Sodium 143.0 Potassium 3.7 Chloride 109 H Carbon Dioxide 25 Anion Gap 9 BUN 14 Creatinine 0.93 Est GFR ( Amer) > 60 Est GFR (Non-Af Amer) > 60 Glucose 101 Calcium 8.4 Assessment & Plan - Diagnosis (1) Sepsis Qualifiers: Sepsis type: sepsis due to unspecified organism Qualified Code(s): A41.9 - Sepsis, unspecified organism Is this a current diagnosis for this admission?: Yes Plan: Secondary to an abscess on his back. (2) Abscess of back Is this a current diagnosis for this admission?: Yes Plan: The patient is growing staph aureus from cultures. Currently has a wound VAC in place (3) Anemia of chronic disease Is this a current diagnosis for this admission?: Yes (4) Coronary artery disease Qualifiers: Coronary Disease-Associated Artery/Lesion type: [place] artery [place] vs. transplanted heart: [place] heart Associated angina: without angina Qualified Code(s): I25.10 - Atherosclerotic heart disease of [place] coronary artery without angina pectoris Is this a current diagnosis for this admission?: Yes Plan: Denies any chest pain. (5) Essential hypertension Is this a current diagnosis for this admission?: Yes Plan: Patient's blood pressure has been elevated. He normally takes Plendil but we do not have that on formulary will continue Norvasc instead. Also will give as needed hydralazine. (6) History of stroke Is this a current diagnosis for this admission?: Yes - Time Time Spent with patient: 25-34 minutes - Plan Summary Plan Summary: Patient will go back to [facility] skilled nurse facility to continue rehab. The patient could be switched to p.o. clindamycin whenever surgery feels it is appropriate and discharged to skilled nurse facility.
[2017-01-08] MEDS: TAMSULOSIN HCL 0.4 MG CAP.SR.24H PO SCH (16:57)
--- NOTE | 2017-01-08 17:00 | PDOC TRANSFER SUMMARY ---
General - Admit/Disc Date/PCP Admission Date/Primary Care Provider: 12/31/16 18:45 Discharge Date: 01/09/17 - Discharge Diagnosis (1) Sepsis Is this a current diagnosis for this admission?: Yes Summary: Secondary to an abscess on the back (2) Abscess of back Is this a current diagnosis for this admission?: Yes Summary: Growing staph aureus from the cultures. This is methicillin sensitive (3) Anemia of chronic disease Is this a current diagnosis for this admission?: Yes (4) Coronary artery disease Is this a current diagnosis for this admission?: Yes (5) Essential hypertension Is this a current diagnosis for this admission?: Yes (6) History of stroke Is this a current diagnosis for this admission?: Yes - Additional Information Resuscitation Status: Full Code Discharge Diet: Cardiac Discharge Activity: Activity As Tolerated Home Medications: Allopurinol [Zyloprim 300 mg Tablet] 300 mg PO DAILY 01/01/17 Aspirin [Aspirin EC] 81 mg PO DAILY 01/01/17 Atorvastatin Calcium [Lipitor 80 mg Tablet] 80 mg PO QHS 01/01/17 Brimonidine Tartrate [Alphagan P] 1 drop OU Q8 01/01/17 Felodipine [Plendil] 5 mg PO DAILY 01/01/17 Finasteride [Proscar 5 mg Tablet] 5 mg PO DAILY 01/01/17 Lisinopril [Prinivil 40 mg Tablet] 40 mg PO DAILY 01/01/17 Metoprolol Succinate [Toprol XL 100 mg Tablet] 100 mg PO DAILY 01/01/17 Multivit,Calc,Mins/Iron/Folic [Thera M Plus Tablet] 1 each PO DAILY 01/01/17 Tamsulosin HCl [Flomax 0.4 mg Cap.sr] 0.4 mg PO QHS 01/01/17 Clindamycin HCl [Cleocin 150 mg Capsule] 900 mg PO Q8 7 Days capsule 01/08/17 Docusate Sodium [Colace 100 mg Capsule] 100 mg PO BID capsule 01/08/17 Flu Vacc [id number] [id number] Up/Pf [Fluzone Adlt Quad [id number] Vac 0.5 ml Syr] 0.5 ml IM .DISCHARGE PRN disp.syrin 01/08/17 Oxycodone HCl/Acetaminophen [Percocet 5-325 mg Tablet] 1 tab PO Q4HP PRN #14 tablet 01/08/17 Polyethylene Glycol 3350 [Miralax Powder 17 gm/Packet] 17 gm PO DAILY powd.pack 01/08/17 History of Present Illness Admission Date/PCP: 12/31/16 18:45 History of Present Illness: GISSELLE DUFF is a 71 year old male, w/ CAD s/p recent coronary artery bypass grafting on rehabilitation started to develop induration and pain on the back. Patient has a red painful swollen area on his right lower thoracic back which started as a small spot yesterday and is gotten much larger and painful to touch. Patient is a resident and [facility] skilled nursing, rehabilitating from coronary bypass surgery in October at [facility].. He had an outpatient CBC done yesterday with a white count of 26,000. On evaluation in the emergency room patient was found to have an abscess and therefore surgery was consulted and an incision and drainage was done. Patient was admitted and referred to the hospitalist service for medical management. Hospital Course Hospital Course: 71-year-old gentleman who recently had bypass surgery and was at [facility] getting rehabilitation. He developed an irritated area on his right lower back area in the right CVA region that developed into an abscess. Patient was febrile with a white count of 26,000 and low blood pressures as admitted with a diagnosis of sepsis. The patient was started on vancomycin and ertapenem initially. The patient's cultures eventually grew out methicillin sensitive staph aureus. The patient was changed then to clindamycin. Patient was evaluated by surgery who performed an I&D and he was taken back another time for debridement. The wound has cleaned up nicely and a wound VAC was placed. The patient has completed 8 days of antibiotics and will get an additional 7 days of p.o. clindamycin. The patient will need the wound VAC monitored by the wound clinic. The patient's other problems including hypertension and coronary artery disease were stable during this hospitalization. The patient had been taking felodipine as an outpatient and this was not available he was given amlodipine while here. Patient is to be discharged back to [facility] to complete his course of physical therapy and rehabilitation after his coronary artery bypass grafting. Physical Exam Vital Signs: Temp Pulse Resp BP Pulse Ox 98.3 F 67 16 153/78 H 100 01/08/17 15:29 01/08/17 15:29 01/08/17 15:29 01/08/17 15:29 01/08/17 15:29 Intake & Output 01/07/17 01/08/17 01/09/17 06:59 06:59 06:59 Intake Total 1182 1389 385 Output Total 375 1000 370 Balance 807 389 15 Weight 75.6 kg 78.2 kg 78.2 kg General appearance: PRESENT: no acute distress Eye exam: PRESENT: conjunctiva pink. ABSENT: scleral icterus Ear exam: PRESENT: normal external ear exam Mouth exam: PRESENT: moist, tongue midline Neck exam: ABSENT: JVD Respiratory exam: PRESENT: clear to auscultation cuate. ABSENT: rales, rhonchi, wheezes Cardiovascular exam: PRESENT: RRR. ABSENT: diastolic murmur, rubs, systolic murmur Pulses: PRESENT: normal dorsalis pedis pul GI/Abdominal exam: PRESENT: normal bowel sounds, soft. ABSENT: distended, guarding, mass, organolmegaly, rebound, tenderness Extremities exam: ABSENT: calf tenderness, clubbing, pedal edema Neurological exam: PRESENT: alert, awake, oriented to person, oriented to place , oriented to time, oriented to situation, CN II-XII grossly intact. ABSENT: motor sensory deficit Psychiatric exam: PRESENT: appropriate affect Skin exam: PRESENT: other - Patient is a wound VAC on his right lower back. Results Laboratory Results: 01/08/17 04:44 01/08/17 04:44 01/08/17 01/08/17 04:44 04:44 WBC 10.3 RBC 3.40 L Hgb 9.6 L Hct 29.1 L MCV 86 MCH 28.3 MCHC 33.1 RDW 19.1 H Plt Count 373 Seg Neutrophils % 76.5 Lymphocytes % 10.9 L Monocytes % 6.5 Eosinophils % 5.8 Basophils % 0.3 Absolute Neutrophils 7.9 Absolute Lymphocytes 1.1 Absolute Monocytes 0.7 Absolute Eosinophils 0.6 Absolute Basophils 0.0 Sodium 143.0 Potassium 3.7 Chloride 109 H Carbon Dioxide 25 Anion Gap 9 BUN 14 Creatinine 0.93 Est GFR ( Amer) > 60 Est GFR (Non-Af Amer) > 60 Glucose 101 Calcium 8.4 Transfer Plan - Disposition Transfer Plan: Patient is to be transferred to [facility] nurse [facility] in the morning of the for rehab. - Time Spent with Patient Time spent with patient: Greater than 30 Minutes Qualifiers PATEINT BEING DISCHARGED WITH ANY OF THE FOLLOWING DIAGNOSIS?: No Plan Discharge Plan: Patient will follow up with the wound clinic in 1 week and primary care in 2 weeks. Patient to be transferred to [facility] nurse [facility] on January 09. Time Spent: Greater than 30 Minutes
[2017-01-08] MEDS: CLINDAMYCIN HCL 150 MG CAPSULE PO SCH (21:21)
[2017-01-08] MEDS: ATORVASTATIN CALCIUM 80 MG TABLET PO SCH (21:22)
[2017-01-09 05:43] LABS: ANION GAP 10 (5-19); BLOOD UREA NITROGEN 11 mg/dL (7-20); CALCIUM 8.8 mg/dL (8.4-10.2); CARBON DIOXIDE 27 mmol/L (22-30); CHLORIDE 108 mmol/L (98-107); CREATININE RESULT 0.77 mg/dL (0.52-1.25); GLUCOSE 105 mg/dL (75-110); POTASSIUM 3.5 mmol/L (3.6-5.0)
[2017-01-09 05:51] LABS: ABSOLUTE BASOPHILS # (AUTO) 0.1 10^3/uL (0.0-0.2); ABSOLUTE EOSINOPHILS # (AUTO) 0.6 10^3/uL (0.0-0.6); ABSOLUTE LYMPHOCYTES (AUTO) 1.4 10^3/uL (0.5-4.7); ABSOLUTE MONOCYTES (AUTO) 0.7 10^3/uL (0.1-1.4); ABSOLUTE NEUT (AUTO) 7.5 10^3/uL (1.7-8.2); BASOPHILS % (AUTO) 1.1 % (0-2); HEMOGLOBIN 9.7 g/dL (13.5-17.0); HGB HCT DIFFERENCE 0.1; LYMPHOCYTES % (AUTO) 13.1 % (13-45); MEAN CORPUSCULAR HEMOGLOBIN 28.7 pg (27.0-33.4); MEAN CORPUSCULAR HGB CONC 33.5 g/dL (32.0-36.0); MEAN CORPUSCULAR VOLUME 86 fl (80-97); MONOCYTES % (AUTO) 6.9 % (3-13); RED BLOOD COUNT 3.38 10^6/uL (4.35-5.55); RED CELL DISTRIBUTION WIDTH 19.3 % (11.5-14.0); SEGMENTED NEUTROPHILS % (AUTO) 72.9 % (42-78); WHITE BLOOD COUNT 10.3 10^3/uL (4.0-10.5)
[2017-01-09] MEDS: CLINDAMYCIN HCL 150 MG CAPSULE PO SCH (06:01)
[2017-01-09] MEDS: BRIMONIDINE TARTRATE 0.2% OPH SOLN 5 ML OU SCH (06:01)
[2017-01-09 08:46] VITALS: BP 153/80
[2017-01-09] MEDS: OXYCODONE-ACETAMINOPHEN 5-325 MG TABLET PO PRN (09:37)
[2017-01-09] MEDS: METOPROLOL SUCCINATE 50 MG TAB.SR.24H PO SCH (09:37)
[2017-01-09] MEDS: FINASTERIDE 5 MG TABLET PO SCH (09:37)
[2017-01-09] MEDS: DOCUSATE SODIUM 100 MG CAPSULE PO SCH (09:37)
[2017-01-09] MEDS: AMLODIPINE BESYLATE 5 MG TABLET PO SCH (09:37)
[2017-01-09] MEDS: ENOXAPARIN SODIUM INJ 40 MG/0.4 ML DISP.SYRIN SUBCUT SCH (09:37)
[2017-01-09] MEDS: ASPIRIN 81 MG TABLET, ENT COATED PO SCH (09:37)
[2017-01-09] MEDS: ALLOPURINOL 300 MG TABLET PO SCH (09:38)
[2017-01-09] MEDS: POLYETHYLENE GLYCOL 3350 POWDER 17 GM/1 PACKET PO SCH (09:38)
== END 2017-01-09 10:03 | DRG 854 ==
LOC: ER 14:24 → UNDOADMIN 17:08 → EH 17:08 → 3W 19:59
PROVIDERS: ADMIT Surgery; ATTEND Surgery
PROC: 30233N1 Transfusion of Nonautologous Red Blood Cells into Peripheral Vein, Percutaneous Approach (ICD-10-PCS; 2016-12-31)
PROC: 0JB70ZZ Excision of Back Subcutaneous Tissue and Fascia, Open Approach (ICD-10-PCS; principal; 2016-12-31 17:30)
PROC: 0JB70ZZ Excision of Back Subcutaneous Tissue and Fascia, Open Approach (ICD-10-PCS; 2017-01-02)
PROC: 0JB70ZZ Excision of Back Subcutaneous Tissue and Fascia, Open Approach (ICD-10-PCS; 2017-01-04)
PROC: 2W15X6Z Compression of Back using Pressure Dressing (ICD-10-PCS; 2017-01-05)
DX: A41.9 Sepsis, unspecified organism (principal); L02.212 Cutaneous abscess of back [any part, except buttock and flank]; B95.61 Methicillin susceptible Staphylococcus aureus infection as the cause of diseases classified elsewhere; I10 Essential (primary) hypertension; I25.10 Atherosclerotic heart disease of native coronary artery without angina pectoris; D63.8 Anemia in other chronic diseases classified elsewhere; L89.159 Pressure ulcer of sacral region, unspecified stage; L89.629 Pressure ulcer of left heel, unspecified stage; H40.9 Unspecified glaucoma; M10.9 Gout, unspecified; Z95.1 Presence of aortocoronary bypass graft; Z86.73 Personal history of transient ischemic attack (TIA), and cerebral infarction without residual deficits; Z28.21 Immunization not carried out because of patient refusal
CPT/HCPCS: 00300; 36415; 36430; 80048; 80053; 80202; 81001; 82553; 82565; 82962; 83605; 84484; 85025; 85027; 86850; 86900; 86901; 86920; 87040; 87070; 87075; 87077; 87186; 87205; 93005; 93010; 99284; A6266; G8978-GP; G8979-GP; J0131; J0330; J0690; J1335; J1650; J2250; J2270; J2405; J2704; J3010; J3370; J3490; J7030; J7060; P9016